=== PATIENT | female | born 1985 | race Asian ===

== ENCOUNTER 2019-01-25 18:55 | Inpatient (IN) | payer SELFPAY ==
--- NOTE | 2019-01-25 19:15 | ER Document Report ---
ED Medical Screen (RME) - General Chief Complaint: Abdominal Pain Stated Complaint: ABDOMINAL PAIN Time Seen by Provider: 01/25/19 19:12 Mode of Arrival: Wheelchair Information source: Patient Notes: 33-year-old female presented to ED for complaint of abdominal pain generalized with nausea and vomiting. She states this started about 530 this morning. She has been nausea and vomiting every time she drinks any liquids. She states she has vomited more than 10 times today. She states she had a 1 day. In October but she is not sexually active. She states that her periods are very irregular and sometimes she does not have a cycle for a year. I have greeted and performed a rapid initial assessment of this patient. A comprehensive ED assessment and evaluation of the patient, analysis of test results and completion of medical decision making process will be conducted by an additional ED providers. - Related Data Allergies/Adverse Reactions: No Known Allergies Allergy (Unverified 01/25/19 19:12) Physical Exam - Vital signs Vitals: Temp Pulse Resp BP Pulse Ox 97.7 F 103 H 18 130/79 H 100 01/25/19 19:00 01/25/19 19:00 01/25/19 19:00 01/25/19 19:00 01/25/19 19:00 Course - Vital Signs Vital signs: Temp Pulse Resp BP Pulse Ox 97.7 F 103 H 18 130/79 H 100 01/25/19 19:00 01/25/19 19:00 01/25/19 19:00 01/25/19 19:00 01/25/19 19:00
[2019-01-25] MEDS ORDERED: ONDANSETRON 4 MG TAB.RAPDIS PO ONE (19:16)
[2019-01-25] MEDS ORDERED: KETOROLAC TROMETHAMINE INJ/PF 30 MG/1 ML SDV IM ONE (19:16)
[2019-01-25 19:57] LABS: HEMATOCRIT 45.4 % (36.0-47.0); MEAN CORPUSCULAR HEMOGLOBIN 31.1 pg (27.0-33.4); MEAN CORPUSCULAR HGB CONC 35.3 g/dL (32.0-36.0); MEAN CORPUSCULAR VOLUME 88 fl (80-97); PLATELET COUNT 393 10^3/uL (150-450); RED BLOOD COUNT 5.15 10^6/uL (3.72-5.28); RED CELL DISTRIBUTION WIDTH 13.2 % (11.5-14.0); WHITE BLOOD COUNT 20.3 10^3/uL (4.0-10.5)
[2019-01-25 20:17] LABS: ALBUMIN 4.9 g/dL (3.5-5.0); ALKALINE PHOSPHATASE 60 U/L (38-126); ASPARTATE AMINO TRANSFERASE 32 U/L (14-36); BILIRUBIN,DIRECT 0.3 mg/dL (0.0-0.4); BILIRUBIN,TOTAL 0.8 mg/dL (0.2-1.3); BLOOD UREA NITROGEN 15 mg/dL (7-20); CALCIUM 9.7 mg/dL (8.4-10.2); GLUCOSE 161 mg/dL (75-110); POTASSIUM 4.5 mmol/L (3.6-5.0); TOTAL PROTEIN 8.7 g/dL (6.3-8.2)
[2019-01-25 20:33] LABS: ABSOLUTE LYMPHOCYTES# (MANUAL) 1.2 10^3/uL (0.5-4.7); ABSOLUTE MONOCYTES # (MANUAL) 0.6 10^3/uL (0.1-1.4); BAND NEUTROPHILS % (MANUAL) 9 % (3-5); BASOPHILS % (MANUAL) 0 % (0-2); EOSINOPHILS % (MANUAL) 0 % (0-6); LYMPHOCYTES % (MANUAL) 6 % (13-45); MONOCYTES % (MANUAL) 3 % (3-13); PLATELET COMMENT ADEQUATE; RBC MORPHOLOGY COMMENT NORMO-CYTIC/CHROMIC; SEGMENTED NEUTROPHILS % (MAN) 82 % (42-78); TOTAL CELLS COUNTED 100
[2019-01-25 20:46] LABS: CHLORIDE 104 mmol/L (98-107)
[2019-01-25 20:47] LABS: ANION GAP 21 (5-19); CARBON DIOXIDE 17 mmol/L (22-30)
[2019-01-25 21:16] LABS: APPEARANCE,URINE SLIGHTLY-CLOUDY; BILIRUBIN,URINE NEGATIVE (NEGATIVE); COLOR,URINE YELLOW; GLUCOSE, URINE NEGATIVE (NEGATIVE); KETONES,URINE 80 mg/dL (NEGATIVE); PROTEIN,URINE 100 mg/dL (NEGATIVE); UROBILINOGEN,URINE NEGATIVE mg/dL (<2.0)
[2019-01-25] MEDS ORDERED: RINGERS SOLUTION,LACTATED 1,000 ML IV ONE (23:51)
[2019-01-25] MEDS ORDERED: FENTANYL CITRATE INJ/PF 100 MCG/2 ML AMPUL IV ONE (23:52)
--- NOTE | 2019-01-26 00:03 | ER Document Report ---
ED GI/ - General Chief Complaint: Abdominal Pain Stated Complaint: ABDOMINAL PAIN Time Seen by Provider: 01/25/19 19:12 Mode of Arrival: Wheelchair Notes: Patient is otherwise healthy 33-year-old female presents to the emergency department for generalized abdominal pain and vomiting. Voices she started with generalized abdominal pain and vomiting around 530 this morning. Voices she has vomited "too many times to count." Patient's denying any blood in her emesis. She is denying any diarrhea or dysuria. She is denying any vaginal discharge. States initially the pain was epigastric but now "hurts everywhere." Patient voices occasional use of alcohol, denies any history of pancreatitis. States she takes seasonal allergy medications, has no medical problems, has no allergies. TRAVEL OUTSIDE OF THE [place] IN LAST 30 DAYS: No - Related Data Allergies/Adverse Reactions: No Known Allergies Allergy (Unverified 01/25/19 19:12) Past Medical History - General Information source: Patient - Social History Smoking Status: Current Every Day Smoker Chew tobacco use (# tins/day): No Frequency of alcohol use: Occasional Drug Abuse: None Family History: Reviewed & Not Pertinent Patient has suicidal ideation: No Patient has homicidal ideation: No Review of Systems - Review of Systems Constitutional: denies: Fever EENT: No symptoms reported Cardiovascular: No symptoms reported Respiratory: No symptoms reported Gastrointestinal: See HPI Genitourinary: No symptoms reported Female Genitourinary: No symptoms reported Musculoskeletal: No symptoms reported Skin: No symptoms reported Hematologic/Lymphatic: No symptoms reported Neurological/Psychological: No symptoms reported Physical Exam - Vital signs Vitals: Temp Pulse Resp BP Pulse Ox 97.7 F 103 H 18 130/79 H 100 01/25/19 19:00 01/25/19 19:00 01/25/19 19:00 01/25/19 19:00 01/25/19 19:00 - Notes Notes: GENERAL: Alert, interacts well. No obvious distress, holding her periumbilical region. HEAD: Normocephalic, atraumatic. EYES: Pupils equal, round, and reactive to light. Extraocular movements intact. ENT: Oral mucosa moist, tongue midline. NECK: Full range of motion. Supple. Trachea midline. LUNGS: Clear to auscultation bilaterally, no wheezes, rales, or rhonchi. No respiratory distress. HEART: Regular rate and rhythm. No murmur ABDOMEN: Soft, generalized abdominal pain noted all 4 quadrants. Non-distended. Bowel sounds present in all 4 quadrants. EXTREMITIES: Moves all 4 extremities spontaneously. No edema, normal radial and dorsalis pedis pulses bilaterally. No cyanosis. BACK: no cervical, thoracic, lumbar midline tenderness. No saddle anesthesia, normal distal neurovascular exam. NEUROLOGICAL: Alert and oriented x3. Normal speech. cranial nerves II through XII grossly intact PSYCH: Normal affect, normal mood. SKIN: Warm, dry, normal turgor. No rashes or lesions noted. Course - Re-evaluation Re-evalutation: 01/26/19 01:34 Laboratory 01/25/19 01/25/19 01/25/19 19:36 19:36 19:36 WBC 20.3 H RBC 5.15 Hgb 16.0 H Hct 45.4 MCV 88 MCH 31.1 MCHC 35.3 RDW 13.2 Plt Count 393 Lymph % (Auto) Not Reportable [place] % (Auto) Not Reportable Eos % (Auto) Not Reportable Baso % (Auto) Not Reportable Absolute Neuts (auto) Not Reportable Absolute Lymphs (auto) Not Reportable Absolute Monos (auto) Not Reportable Absolute Eos (auto) Not Reportable Absolute Basos (auto) Not Reportable Total Counted 100 Seg Neutrophils % Not Reportable Seg Neuts % (Manual) 82 H Band Neutrophils % 9 H Lymphocytes % (Manual) 6 L Monocytes % (Manual) 3 Eosinophils % (Manual) 0 Basophils % (Manual) 0 Abs Neuts (Manual) 18.5 H Abs Lymphs (Manual) 1.2 Abs Monocytes (Manual) 0.6 Absolute Eos (Manual) 0.0 Abs Basophils (Manual) 0.0 Platelet Comment ADEQUATE RBC Morph Comment NORMO-CYTIC/CHROMIC Sodium 141.7 Potassium 4.5 Chloride 104 Carbon Dioxide 17 L Anion Gap 21 H BUN 15 Creatinine 0.62 Est GFR ( Amer) > 60 Est GFR (MDRD) Non-Af > 60 Glucose 161 H Calcium 9.7 Total Bilirubin 0.8 Direct Bilirubin 0.3 Neonat Total Bilirubin Not Reportable Neonat Direct Bilirubin Not Reportable Neonat Indirect Bili Not Reportable AST 32 ALT 33 Alkaline Phosphatase 60 Total Protein 8.7 H Albumin 4.9 Lipase 28816.3 H Beta HCG, Quant < 2.39 Total Beta HCG NEGATIVE Urine Color YELLOW Urine Appearance SLIGHTLY-CLOUDY Urine pH 6.0 Ur Specific [place] 1.030 Urine Protein 100 H Urine Glucose (UA) NEGATIVE Urine Ketones 80 H Urine Blood NEGATIVE Urine Nitrite (Reflex) NEGATIVE Urine Bilirubin NEGATIVE Urine Urobilinogen NEGATIVE Leukocyte Esterase Rfl NEGATIVE Urine RBC (Auto) 26 Urine Bacteria (Auto) TRACE Urine WBC (Reflex) 4 Squamous Epi Cells Auto 6 Urine Mucus (Auto) MANY Urine Ascorbic Acid 40 H Abdomen/Pelvis CT 01/26/19 00:00 IMPRESSION: Acute pancreatitis. Fatty infiltrative change to the liver TECHNICAL DOCUMENTATION: Quality ID # 436: Final reports with documentation of one or more dose reduction techniques (e.g., Automated exposure control, adjustment of the mA and/or kV according to patient size, use of iterative reconstruction technique) copyright 2011 [employer]- All Rights Reserved I discussed this case with hospitalist Dr. Garcia who will admit the patient for continued care. - Vital Signs Vital signs: Temp Pulse Resp BP Pulse Ox 97.7 F 103 H 18 130/79 H 100 01/25/19 19:00 01/25/19 19:00 01/25/19 19:00 01/25/19 19:00 01/25/19 19:00 - Laboratory Result Diagrams: 01/25/19 19:36 01/25/19 19:36 Laboratory results interpreted by me: 01/25/19 01/25/19 01/25/19 19:36 19:36 19:36 WBC 20.3 H Hgb 16.0 H Seg Neuts % (Manual) 82 H Band Neutrophils % 9 H Lymphocytes % (Manual) 6 L Abs Neuts (Manual) 18.5 H Carbon Dioxide 17 L Anion Gap 21 H Glucose 161 H Total Protein 8.7 H Lipase 70233.3 H Urine Protein 100 H Urine Ketones 80 H Urine Ascorbic Acid 40 H Discharge - Discharge Clinical Impression: Pancreatitis Qualifiers: Chronicity: acute Pancreatitis type: unspecified pancreatitis type Acute pancreatitis complication: unspecified Qualified Code(s): K85.90 - Acute pancreatitis without necrosis or infection, unspecified Condition: Stable Disposition: ADMITTED INPATIENT Admitting Provider: Jose (Hospitalist) Unit Admitted: Medical Floor
--- NOTE | 2019-01-26 01:22 | RADIOLOGY REPORT (SQ) ---
EXAM DESCRIPTION: CT ABDOMEN PELVIS WITH IV CONTRAST COMPLETED DATE/TME: 01/26/2019 00:00 CLINICAL HISTORY: 33 years, Female, general pain. hcg neg COMPARISON: None. TECHNIQUE: 809 Images stored on PACS. All CT scanners at this facility use dose modulation, iterative reconstruction, and/or weight based dosing when appropriate to reduce radiation dose to as low as reasonably achievable (ALARA). [facility]: Dose Right [facility]: CareDose [facility]: Dose Right [facility]: Teradose 4D [facility]: UTILICASE LIMITATIONS: None. FINDINGS: Visualized lung bases are unremarkable. Osseous structures are grossly intact. Fatty infiltrative change to the liver. The spleen and adrenal glands are unremarkable. Extensive heterogeneity of the pancreas with peripancreatic inflammatory changes consistent with acute pancreatitis. The gallbladder is present. Kidneys are unremarkable. No free air or free fluid. Normal appendix. No gross evidence for bowel obstruction IMPRESSION: Acute pancreatitis. Fatty infiltrative change to the liver TECHNICAL DOCUMENTATION: Quality ID # 436: Final reports with documentation of one or more dose reduction techniques (e.g., Automated exposure control, adjustment of the mA and/or kV according to patient size, use of iterative reconstruction technique) copyright 2010 [employer]- All Rights Reserved
[2019-01-26] MEDS ORDERED: MAGNESIUM HYDROXIDE SUSP 30 ML UDCUP PO PRN (02:39)
[2019-01-26] MEDS ORDERED: MORPHINE SULFATE 10 MG/ML INJ IV PRN (02:39)
[2019-01-26] MEDS ORDERED: HYDRALAZINE HCL INJ/PF 20 MG/1 ML SDV IV PRN (02:39)
[2019-01-26] MEDS ORDERED: NICOTINE 21 MG/24 HR PATCH.TD24 TD PRN (02:39)
[2019-01-26] MEDS ORDERED: MAG HYDROX/AL HYDROX/SIMETH SUSP 30 ML UDCUP PO PRN (02:39)
[2019-01-26] MEDS: DEXTROSE 5%-LACTATED RINGERS 1,000 ML IV PRN ×3 (03:22→23:04)
[2019-01-26] MEDS: MORPHINE SULFATE 10 MG/ML INJ IV PRN ×8 (03:22→21:50)
--- NOTE | 2019-01-26 06:04 | PDOC H&P ---
History of Present Illness Admission Date/PCP: 01/26/19 01:58 No local PCP Patient complains of: Abdominal pain History of Present Illness: DARRELL BIRCH is a 33 year old female presented to the emergency room with a 1 day history of abdominal pain. 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 Her abdominal pain was a continuous continuous crampy pressure of moderate to severe intensity, without radiation. Her pain was accompanied by nausea and repetitive vomiting throughout the day. She denies other associated or accompanying signs and symptoms. She denies prior similar episodes. She has not identified any aggravating or ameliorating factors for her abdominal pain. In the emergency room she was found to have a lipase of greater than 15,000 with a white blood count of greater than 20,000 and acute pancreatitis on her CT of the abdomen and pelvis. She was subsequently admitted to the hospital for further evaluation and treatment. Past Medical History Cardiac Medical History: Denies: Coronary Artery Disease, Hypertension Pulmonary Medical History: Denies: Asthma, Chronic Obstructive Pulmonary Disease (COPD) EENT Medical History: Reports: Nose - Allergic rhinitis Denies: Cataracts, Ears - Hearing aids Neurological Medical History: Denies: Hemorrhagic CVA, Ischemic CVA, Migraine, Multiple Sclerosis, Seizures Endocrine Medical History: Reports: Obesity Denies: Diabetes Mellitus Type 1, Diabetes Mellitus Type 2, Hyperthyroidism, Hypothyroidism Renal/ Medical History: Denies: Chronic Kidney Disease, Nephrolithiasis Malignancy Medical History: Reports: None GI Medical History: Denies: Cirrhosis, Hepatitis, Peptic Ulcer Disease Musculoskeltal Medical History: Denies: Arthritis, Gout Skin Medical History: Denies: Eczema, Psoriasis Psychiatric Medical History: Reports: Tobacco Dependency Denies: Alcohol Dependency, Substance Abuse Traumatic Medical History: Reports: None Hematology: Denies: Anemia, Bleeding Tendencies Infectious Medical History: Reports: None Past Surgical History Past Surgical History: Reports: None Social History Information Source: Patient Lives with: Spouse/Significant other Smoking Status: Current Every Day Smoker Electronic Cigarette use?: No Frequency of Alcohol Use: Occasional Hx Recreational Drug Use: No Drugs: None Hx Prescription Drug Abuse: No - Advance Directive Resuscitation Status: Full Code Surrogate healthcare decision maker:: Samm Fagan Family History Family History: denies: CAD, DM, Hyperlipidemia, Hypertension, Malignancy Parental Family History Reviewed: Yes Children Family History Reviewed: No Sibling(s) Family History Reviewed.: Yes Medication/Allergy Home Medications: Diphenhydramine HCl [Benadryl] 25 mg PO DAILYP PRN 01/25/19 Allergies/Adverse Reactions: No Known Allergies Allergy (Unverified 01/25/19 19:12) Review of Systems Constitutional: ABSENT: chills, fever(s) Eyes: ABSENT: visual disturbances, other - Eye pain Ears: ABSENT: hearing changes, other - Ear pain Nose, Mouth, and Throat: ABSENT: mouth pain, sore throat Cardiovascular: ABSENT: chest pain, dyspnea on exertion Respiratory: ABSENT: dyspnea, hemoptysis Gastrointestinal: PRESENT: as per HPI, abdominal pain, nausea, vomiting. ABSENT: constipation, diarrhea Genitourinary: ABSENT: dysuria, hematuria Musculoskeletal: ABSENT: back pain, joint swelling, muscle weakness Integumentary: ABSENT: pruritus, rash Neurological: ABSENT: confusion, convulsions, focal weakness, memory loss, syncope Psychiatric: ABSENT: anxiety, depression Endocrine: ABSENT: cold intolerance, heat intolerance Hematologic/Lymphatic: ABSENT: easy bleeding, easy bruising Allergic/Immunologic: ABSENT: seasonal rhinorrhea Physical Exam Vital Signs: Temp Pulse Resp BP Pulse Ox 97.7 F 103 H 18 130/79 H 100 01/25/19 19:00 01/25/19 19:00 01/25/19 19:00 01/25/19 19:00 01/25/19 19:00 Intake & Output 01/24/19 01/25/19 01/26/19 23:59 23:59 23:59 Intake Total 1000 Balance 1000 Weight 97.9 kg General appearance: PRESENT: cooperative, mild distress - Secondary to abdominal pain, obese Head exam: PRESENT: atraumatic, normocephalic Eye exam: PRESENT: conjunctiva pink. ABSENT: conjunctival injection, scleral icterus Ear exam: PRESENT: normal external ear exam. ABSENT: bleeding, drainage Mouth exam: PRESENT: dry mucosa, neck supple Neck exam: ABSENT: thyromegaly, tracheal deviation Respiratory exam: PRESENT: clear to auscultation marc, symmetrical, unlabored Cardiovascular exam: PRESENT: RRR. ABSENT: clicks, gallop, rubs Pulses: PRESENT: normal radial pulses, normal dorsalis pedis pul Vascular exam: PRESENT: normal capillary refill. ABSENT: pallor GI/Abdominal exam: PRESENT: normal bowel sounds, soft, tenderness - Epigastric tenderness to palpation Rectal exam: PRESENT: deferred Extremities exam: ABSENT: joint swelling, pedal edema Musculoskeletal exam: ABSENT: deformity, dislocation Neurological exam: PRESENT: alert, oriented to person, oriented to place, oriented to time, oriented to situation, CN II-XII grossly intact. ABSENT: motor sensory deficit Psychiatric exam: PRESENT: appropriate affect, normal mood Skin exam: PRESENT: dry, intact, warm. ABSENT: jaundice, rash, urticaria Results Laboratory Results: 01/25/19 19:36 01/25/19 19:36 01/25/19 01/25/19 01/25/19 19:36 19:36 19:36 WBC 20.3 H RBC 5.15 Hgb 16.0 H Hct 45.4 MCV 88 MCH 31.1 MCHC 35.3 RDW 13.2 Plt Count 393 Seg Neutrophils % Not Reportable Sodium 141.7 Potassium 4.5 Chloride 104 Carbon Dioxide 17 L Anion Gap 21 H BUN 15 Creatinine 0.62 Est GFR ( Amer) > 60 Glucose 161 H Calcium 9.7 Total Bilirubin 0.8 AST 32 Alkaline Phosphatase 60 Total Protein 8.7 H Albumin 4.9 Lipase 21096.3 H Urine Color YELLOW Urine Appearance SLIGHTLY-CLOUDY Urine pH 6.0 Ur Specific [place] 1.030 Urine Protein 100 H Urine Glucose (UA) NEGATIVE Urine Ketones 80 H Urine Blood NEGATIVE Urine RBC (Auto) 26 Impressions: Abdomen/Pelvis CT 01/26/19 00:00 IMPRESSION: Acute pancreatitis. Fatty infiltrative change to the liver TECHNICAL DOCUMENTATION: Quality ID # 436: Final reports with documentation of one or more dose reduction techniques (e.g., Automated exposure control, adjustment of the mA and/or kV according to patient size, use of iterative reconstruction technique) copyright 2011 [employer]- All Rights Reserved Assessment and Plan - Diagnosis (1) Acute pancreatitis Qualifiers: Pancreatitis type: unspecified pancreatitis type Acute pancreatitis complication: unspecified Qualified Code(s): K85.90 - Acute pancreatitis without necrosis or infection, unspecified Is this a current diagnosis for this admission?: Yes (2) Abdominal pain Qualifiers: Abdominal location: epigastric Qualified Code(s): R10.13 - Epigastric pain Is this a current diagnosis for this admission?: Yes (3) Nausea and vomiting Qualifiers: Vomiting Intractability: non-intractable Is this a current diagnosis for this admission?: Yes (4) Leukocytosis Qualifiers: Leukocytosis type: unspecified Qualified Code(s): D72.829 - Elevated white blood cell count, unspecified Is this a current diagnosis for this admission?: Yes - Plan Summary Summary: Patient is admitted to a medical floor for routine supportive and symptomatic care. She will receive IV fluids utilizing D5LR at 167 mL/h. She received analgesia with morphine sulfate 2 to 4 mg IV every 2 hours as needed pain and she will use Zofran 4 mg IV every 4 hours as needed for nausea and vomiting. She will be started on a clear liquid diet which can be advanced as tolerated. She will be started on Reglan, famotidine and sucralfate before meals and at bedtime. Smoking cessation is advised and counseled briefly. A nicotine replacement patch is available for the patient's use, if desired. - Time Time Spent with patient: 25-34 minutes Smoking Cessation Education: 3 to 10 minutes Anticipated discharge: Home - Inpatient Certification Based on my medical assessment, after consideration of the patient's comorbidities, presenting symptoms, or acuity I expect that the services needed warrant INPATIENT care.: Yes I certify that my determination is in accordance with my understanding of Medicare's requirements for reasonable and necessary INPATIENT services [42 CFR 412.3e].: Yes Medical Necessity: Need Close Monitoring Due to Risk of Patient Decompensation, Need For IV Fluids, Need for Pain Control, Risk of Complication if Not Cared For in Hospital, Risk of Diagnosis Which Will Require Inpatient Eval/Care/Monitoring
[2019-01-26] MEDS: HEPARIN SOD (PORCINE) 5,000 UNIT/ML 1 ML VIAL SUBCUT SCH ×3 (07:01→21:56)
--- NOTE | 2019-01-26 08:03 | Progress Note ---
Provider Note Provider Note: 01/26/2019-patient met early a.m. I have reviewed labs this patient. We will continue to follow make changes plan of care as appropriate for patient.
[2019-01-26] MEDS: SUCRALFATE 1 GM TABLET PO SCH ×4 (08:22→21:51)
[2019-01-26] MEDS: METOCLOPRAMIDE HCL 10 MG TABLET PO SCH ×4 (08:22→21:51)
[2019-01-26] MEDS: FAMOTIDINE 20 MG TABLET PO SCH ×4 (08:22→21:50)
--- NOTE | 2019-01-26 08:53 | RADIOLOGY REPORT (SQ) ---
EXAM DESCRIPTION: U/S ABDOMEN LIMITED W/O DOP COMPLETED DATE/TIME: 01/26/2019 8:02 am REASON FOR STUDY: Acute pancreatitis please ultrasound gallbladder COMPARISON: None. TECHNIQUE: Dynamic and static grayscale images acquired of the abdomen and recorded on PACS. Additio nal selected color Doppler and spectral images recorded. LIMITATIONS: None. FINDINGS: PANCREAS: Heterogeneous. No mass identified. LIVER: Echotexture is coarse with increased echogenicity consistent with fatty infiltration. LIVER VASCULATURE: Normal directional flow of the main portal vein and hepatic veins. GALLBLADDER: No stones. Normal wall thickness. No pericholecystic fluid. ULTRASOUND-DETECTED INFANTE'S SIGN: Negative. INTRAHEPATIC DUCTS AND COMMON DUCT: CBD and intrahepatic ducts normal caliber. No filling defects. INFERIOR VENA CAVA: Normal flow. AORTA: No aneurysm. RIGHT KIDNEY: Normal size. Normal echogenicity. No solid or suspicious masses. No hydronephros is. No calcifications. PERITONEAL AND RIGHT PLEURAL SPACE: No ascites or effusions. OTHER: No other significant finding. IMPRESSION: Fatty liver. No acute findings. Patient has known acute pancreatitis. TECHNICAL DOCUMENTATION: JOB ID: [id number] [employer]- All Rights Reserved Reading location - IP/workstation name: [email or web address]
[2019-01-26] MEDS ORDERED: INFLUENZA QUAD (6MOS+) 2019-20 VAC 0.5 ML SYR IM ONE (10:17)
[2019-01-26] MEDS: ACETAMINOPHEN 325 MG TABLET PO PRN ×2 (13:03→21:52)
[2019-01-27] MEDS: MORPHINE SULFATE 10 MG/ML INJ IV PRN ×8 (01:59→23:20)
[2019-01-27] MEDS: ACETAMINOPHEN 325 MG TABLET PO PRN ×4 (03:33→20:45)
[2019-01-27 06:10] LABS: HEMATOCRIT 36.8 % (36.0-47.0); MEAN CORPUSCULAR HEMOGLOBIN 30.2 pg (27.0-33.4); MEAN CORPUSCULAR VOLUME 89 fl (80-97); PLATELET COUNT 293 10^3/uL (150-450); RED BLOOD COUNT 4.14 10^6/uL (3.72-5.28); RED CELL DISTRIBUTION WIDTH 13.4 % (11.5-14.0); WHITE BLOOD COUNT 11.9 10^3/uL (4.0-10.5)
[2019-01-27 06:11] LABS: HEMOGLOBIN 12.5 g/dL (12.0-15.5)
[2019-01-27 06:32] LABS: AMYLASE 537 U/L (30-110); ANION GAP 11 (5-19); BLOOD UREA NITROGEN 10 mg/dL (7-20); CALCIUM 8.1 mg/dL (8.4-10.2); CARBON DIOXIDE 24 mmol/L (22-30); CHLORIDE 102 mmol/L (98-107); CHOLESTEROL 149.96 mg/dL (0-200); GLUCOSE 151 mg/dL (75-110); POTASSIUM 3.3 mmol/L (3.6-5.0); TRIGLYCERIDES 387 mg/dL (<150)
[2019-01-27 06:43] LABS: DIRECT LDL 57 mg/dL (<100)
[2019-01-27] MEDS: HEPARIN SOD (PORCINE) 5,000 UNIT/ML 1 ML VIAL SUBCUT SCH ×3 (06:48→23:20)
[2019-01-27 06:49] LABS: VLDL CHOLESTEROL 77.4 mg/dL (10-31)
[2019-01-27] MEDS: DEXTROSE 5%-LACTATED RINGERS 1,000 ML IV PRN ×3 (06:52→23:19)
[2019-01-27] MEDS ORDERED: POTASSIUM CHLORIDE 10 MEQ CAPSULE.ER PO ONE (08:27)
--- NOTE | 2019-01-27 08:31 | PDOC PROGRESS REPORT ---
Subjective Progress Note for:: 01/27/19 Subjective:: 01/27/2019-improved pain this a.m. Reason For Visit: ACUTE PANCREATITIS Physical Exam Vital Signs: Temp Pulse Resp BP Pulse Ox 98.2 F 117 H 18 115/74 93 01/27/19 03:30 01/26/19 20:26 01/26/19 20:26 01/27/19 03:30 01/26/19 20:26 Intake & Output 01/26/19 01/27/19 01/28/19 06:59 06:59 05:59 Intake Total 1000 3510 Output Total 120 Balance 1000 3390 Weight 97.9 kg 101.3 kg General appearance: PRESENT: no acute distress, well-developed, well-nourished Head exam: PRESENT: atraumatic, normocephalic Eye exam: PRESENT: conjunctiva pink, EOMI, PERRLA. ABSENT: scleral icterus Ear exam: PRESENT: normal external ear exam Mouth exam: PRESENT: moist, tongue midline Neck exam: ABSENT: carotid bruit, JVD, lymphadenopathy, thyromegaly Respiratory exam: PRESENT: clear to auscultation marc. ABSENT: rales, rhonchi, wheezes Cardiovascular exam: PRESENT: RRR. ABSENT: diastolic murmur, rubs, systolic murmur Pulses: PRESENT: normal dorsalis pedis pul Vascular exam: PRESENT: normal capillary refill GI/Abdominal exam: PRESENT: normal bowel sounds, soft. ABSENT: distended, guarding, mass, organolmegaly, rebound, tenderness Rectal exam: PRESENT: deferred Extremities exam: PRESENT: full ROM. ABSENT: calf tenderness, clubbing, pedal edema Neurological exam: PRESENT: alert, awake, oriented to person, oriented to place, oriented to time, oriented to situation, CN II-XII grossly intact. ABSENT: motor sensory deficit Psychiatric exam: PRESENT: appropriate affect, normal mood. ABSENT: homicidal ideation, suicidal ideation Skin exam: PRESENT: dry, intact, warm. ABSENT: cyanosis, rash Results Laboratory Results: 01/27/19 05:16 01/27/19 05:16 01/27/19 01/27/19 01/27/19 05:16 05:16 05:16 WBC 11.9 H RBC 4.14 Hgb 12.5 D Hct 36.8 MCV 89 MCH 30.2 MCHC 34.0 RDW 13.4 Plt Count 293 Sodium 137.0 Potassium 3.3 L Chloride 102 Carbon Dioxide 24 Anion Gap 11 BUN 10 Creatinine 0.73 Est GFR ( Amer) > 60 Glucose 151 H Calcium 8.1 L Magnesium 1.9 Triglycerides 387 H Cholesterol 149.96 LDL Cholesterol Direct 57 VLDL Cholesterol 77.4 H HDL Cholesterol 24 L Amylase 537 H Lipase 2456.0 H TSH 1.57 Impressions: Abdomen Ultrasound 01/26/19 00:00 IMPRESSION: Fatty liver. No acute findings. Patient has known acute pancreatitis. Abdomen/Pelvis CT 01/26/19 00:00 IMPRESSION: Acute pancreatitis. Fatty infiltrative change to the liver TECHNICAL DOCUMENTATION: Quality ID # 436: Final reports with documentation of one or more dose reduction techniques (e.g., Automated exposure control, adjustment of the mA and/or kV according to patient size, use of iterative reconstruction technique) copyright 2010 [employer]- All Rights Reserved Assessment and Plan - Diagnosis (1) Acute pancreatitis Qualifiers: Pancreatitis type: unspecified pancreatitis type Acute pancreatitis complication: unspecified Qualified Code(s): K85.90 - Acute pancreatitis without necrosis or infection, unspecified Is this a current diagnosis for this admission?: Yes Plan: 01/27/2019-abdominal pain is improved. Continue PRN pain medications. Lipase reduced significantly. Patient started on clear liquid diet we will continue to follow (2) Abdominal pain Qualifiers: Abdominal location: epigastric Qualified Code(s): R10.13 - Epigastric pain Is this a current diagnosis for this admission?: Yes Plan: 01/2019-abdominal pain see #1 (3) Nausea and vomiting Qualifiers: Vomiting Intractability: non-intractable Is this a current diagnosis for this admission?: Yes Plan: 01/27/2019-continue PRN antiemetics (4) Leukocytosis Qualifiers: Leukocytosis type: unspecified Qualified Code(s): D72.829 - Elevated white blood cell count, unspecified Is this a current diagnosis for this admission?: Yes Plan: 01/27/2019-improved continue to follow daily CBCs - Plan Summary Summary: Patient is admitted to a medical floor for routine supportive and symptomatic care. She will receive IV fluids utilizing D5LR at 167 mL/h. She received analgesia with morphine sulfate 2 to 4 mg IV every 2 hours as needed pain and she will use Zofran 4 mg IV every 4 hours as needed for nausea and vomiting. She will be started on a clear liquid diet which can be advanced as tolerated. She will be started on Reglan, famotidine and sucralfate before meals and at bedtime. Smoking cessation is advised and counseled briefly. A nicotine replacement patch is available for the patient's use, if desired. - Time Time Spent with patient: 15-24 minutes - Inpatient Certification Based on my medical assessment, after consideration of the patient's comorbidities, presenting symptoms, or acuity I expect that the services needed warrant INPATIENT care.: Yes I certify that my determination is in accordance with my understanding of Medicare's requirements for reasonable and necessary INPATIENT services [42 CFR 412.3e].: Yes Medical Necessity: Need For IV Fluids, Need for Pain Control
[2019-01-27] MEDS: METOCLOPRAMIDE HCL 10 MG TABLET PO SCH ×4 (09:38→23:21)
[2019-01-27] MEDS: LIPASE/PROTEASE/AMYLASE 1 CAP CAPSULE.DR PO SCH ×3 (09:38→17:52)
[2019-01-27] MEDS: SUCRALFATE 1 GM TABLET PO SCH ×4 (09:38→23:22)
[2019-01-27] MEDS: FAMOTIDINE 20 MG TABLET PO SCH ×4 (09:41→23:21)
[2019-01-28] MEDS: MORPHINE SULFATE 10 MG/ML INJ IV PRN ×7 (01:22→13:36)
[2019-01-28] MEDS: ACETAMINOPHEN 325 MG TABLET PO PRN (03:59)
[2019-01-28] MEDS: DEXTROSE 5%-LACTATED RINGERS 1,000 ML IV PRN ×2 (04:00→11:11)
[2019-01-28 06:35] LABS: HEMATOCRIT 31.2 % (36.0-47.0); HEMOGLOBIN 10.7 g/dL (12.0-15.5); MEAN CORPUSCULAR HEMOGLOBIN 30.3 pg (27.0-33.4); MEAN CORPUSCULAR HGB CONC 34.3 g/dL (32.0-36.0); MEAN CORPUSCULAR VOLUME 88 fl (80-97); PLATELET COUNT 255 10^3/uL (150-450); RED BLOOD COUNT 3.54 10^6/uL (3.72-5.28); RED CELL DISTRIBUTION WIDTH 13.4 % (11.5-14.0); WHITE BLOOD COUNT 12.9 10^3/uL (4.0-10.5)
[2019-01-28 06:53] LABS: ANION GAP 8 (5-19); BLOOD UREA NITROGEN 4 mg/dL (7-20); CARBON DIOXIDE 27 mmol/L (22-30); CHLORIDE 100 mmol/L (98-107); GLUCOSE 130 mg/dL (75-110); POTASSIUM 3.3 mmol/L (3.6-5.0)
[2019-01-28] MEDS: HEPARIN SOD (PORCINE) 5,000 UNIT/ML 1 ML VIAL SUBCUT SCH ×2 (06:59→13:27)
--- NOTE | 2019-01-28 07:53 | PDOC DISCHARGE SUMMARY ---
Impression - Admit/DC Date/PCP Admission Date/Primary Care Provider: 01/26/19 01:58 Discharge Date: 01/28/19 - Discharge Diagnosis (1) Acute pancreatitis Is this a current diagnosis for this admission?: Yes (2) Abdominal pain Is this a current diagnosis for this admission?: Yes (3) Nausea and vomiting Is this a current diagnosis for this admission?: Yes (4) Leukocytosis Is this a current diagnosis for this admission?: Yes - Assessment Summary: Patient is admitted to a medical floor for routine supportive and symptomatic care. She will receive IV fluids utilizing D5LR at 167 mL/h. She received analgesia with morphine sulfate 2 to 4 mg IV every 2 hours as needed pain and she will use Zofran 4 mg IV every 4 hours as needed for nausea and vomiting. She will be started on a clear liquid diet which can be advanced as tolerated. She will be started on Reglan, famotidine and sucralfate before meals and at bedtime. Smoking cessation is advised and counseled briefly. A nicotine replacement patch is available for the patient's use, if desired. - Additional Information Resuscitation Status: Full Code Discharge Diet: As Tolerated Discharge Activity: Activity As Tolerated Prescriptions: Hydrocodone/Acetaminophen [[place] 5-325 mg Tablet] 1 tab PO TID PRN #15 tablet PRN Reason: Ondansetron HCl [Zofran 4 mg Tablet] 1 - 2 tab PO Q4H PRN #10 tablet PRN Reason: Home Medications: Loratadine [Claritin 10 mg Tablet] 10 mg PO DAILYP PRN 01/26/19 Hydrocodone/Acetaminophen [[place] 5-325 mg Tablet] 1 tab PO TID PRN #15 tablet 01/28/19 Ondansetron HCl [Zofran 4 mg Tablet] 1 - 2 tab PO Q4H PRN #10 tablet 01/28/19 History of Present Illiness History of Present Illness: DARRELL BIRCH is a 33 year old female presented to the ER with 1 day history of abdominal pain. Hospital Course Hospital Course: Patient presented to the ER with a 1 day history of abdominal pain. Patient states she woke abruptly with epigastric abdominal pain during the still tender hours. Abdominal pain was continuous and crampy. It was moderate to severe in intensity and without radiation. It was associated with nausea and vomiting throughout the day. Patient was admitted for further evaluation treatment. Patient was placed on medical surgical floor given IV fluids, IV pain control and medication for nausea and vomiting. At this time patient is improved sufficiently and is tolerating oral diet. Patient will return home at this time continue bland diet until patient feels she is capable of eating at her baseline. We will send patient home on Zofran 4 mg p.o. as needed and [place] 5/325 mg 1 p.o. 3 times daily as needed #15 with no refills for abdominal pain. Patient will follow-up primary care within 1 week. Physical Exam Vital Signs: Temp Pulse Resp BP Pulse Ox 99.4 F 112 H 17 107/58 L 94 01/27/19 23:37 01/27/19 23:37 01/27/19 23:37 01/27/19 23:37 01/27/19 23:37 Intake & Output 01/27/19 01/28/19 01/29/19 07:59 06:59 06:59 Intake Total Output Total Balance Weight General appearance: PRESENT: no acute distress, well-developed, well-nourished Head exam: PRESENT: atraumatic, normocephalic Eye exam: PRESENT: conjunctiva pink, EOMI, PERRLA. ABSENT: scleral icterus Ear exam: PRESENT: normal external ear exam Mouth exam: PRESENT: moist, tongue midline Neck exam: ABSENT: carotid bruit, JVD, lymphadenopathy, thyromegaly Respiratory exam: PRESENT: clear to auscultation marc. ABSENT: rales, rhonchi, wheezes Cardiovascular exam: PRESENT: RRR. ABSENT: diastolic murmur, rubs, systolic mur mur Pulses: PRESENT: normal dorsalis pedis pul Vascular exam: PRESENT: normal capillary refill GI/Abdominal exam: PRESENT: normal bowel sounds, soft. ABSENT: distended, guarding, mass, organolmegaly, rebound, tenderness Rectal exam: PRESENT: deferred Extremities exam: PRESENT: full ROM. ABSENT: calf tenderness, clubbing, pedal edema Neurological exam: PRESENT: alert, awake, oriented to person, oriented to place, oriented to time, oriented to situation, CN II-XII grossly intact. ABSENT: motor sensory deficit Psychiatric exam: PRESENT: appropriate affect, normal mood. ABSENT: homicidal ideation, suicidal ideation Skin exam: PRESENT: dry, intact, warm. ABSENT: cyanosis, rash Results Laboratory Results: WBC 12.9 10^3/uL (4.0-10.5) H 01/28/19 05:06 RBC 3.54 10^6/uL (3.72-5.28) L 01/28/19 05:06 Hgb 10.7 g/dL (12.0-15.5) L 01/28/19 05:06 Hct 31.2 % (36.0-47.0) L 01/28/19 05:06 MCV 88 fl (80-97) 01/28/19 05:06 MCH 30.3 pg (27.0-33.4) 01/28/19 05:06 MCHC 34.3 g/dL (32.0-36.0) 01/28/19 05:06 RDW 13.4 % (11.5-14.0) 01/28/19 05:06 Plt Count 255 10^3/uL (150-450) 01/28/19 05:06 Lymph % (Auto) Not Reportable 01/25/19 19:36 [place] % (Auto) Not Reportable 01/25/19 19:36 Eos % (Auto) Not Reportable 01/25/19 19:36 Baso % (Auto) Not Reportable 01/25/19 19:36 Absolute Neuts (auto) Not Reportable 01/25/19 19:36 Absolute Lymphs (auto) Not Reportable 01/25/19 19:36 Absolute Monos (auto) Not Reportable 01/25/19 19:36 Absolute Eos (auto) Not Reportable 01/25/19 19:36 Absolute Basos (auto) Not Reportable 01/25/19 19:36 Total Counted 100 01/25/19 19:36 Seg Neutrophils % Not Reportable 01/25/19 19:36 Seg Neuts % (Manual) 82 % (42-78) H 01/25/19 19:36 Band Neutrophils % 9 % (3-5) H 01/25/19 19:36 Lymphocytes % (Manual) 6 % (13-45) L 01/25/19 19:36 Monocytes % (Manual) 3 % (3-13) 01/25/19 19:36 Eosinophils % (Manual) 0 % (0-6) 01/25/19 19:36 Basophils % (Manual) 0 % (0-2) 01/25/19 19:36 Abs Neuts (Manual) 18.5 10^3/uL (1.7-8.2) H 01/25/19 19:36 Abs Lymphs (Manual) 1.2 10^3/uL (0.5-4.7) 01/25/19 19:36 Abs Monocytes (Manual) 0.6 10^3/uL (0.1-1.4) 01/25/19 19:36 Absolute Eos (Manual) 0.0 10^3/uL (0.0-0.6) 01/25/19 19:36 Abs Basophils (Manual) 0.0 10^3/uL (0.0-0.2) 01/25/19 19:36 Platelet Comment ADEQUATE 01/25/19 19:36 RBC Morph Comment NORMO-CYTIC/CHROMIC 01/25/19 19:36 Sodium 135.2 mmol/L (137-145) L 01/28/19 05:06 Potassium 3.3 mmol/L (3.6-5.0) L 01/28/19 05:06 Chloride 100 mmol/L (98-107) 01/28/19 05:06 Carbon Dioxide 27 mmol/L (22-30) 01/28/19 05:06 Anion Gap 8 (5-19) 01/28/19 05:06 BUN 4 mg/dL (7-20) L 01/28/19 05:06 Creatinine 0.76 mg/dL (0.52-1.25) 01/28/19 05:06 Est GFR ( Amer) > 60 (>60) 01/28/19 05:06 Est GFR (MDRD) Non-Af > 60 (>60) 01/28/19 05:06 Glucose 130 mg/dL (75-110) H 01/28/19 05:06 Calcium 8.0 mg/dL (8.4-10.2) L 01/28/19 05:06 Magnesium 1.8 mg/dL (1.6-2.3) 01/28/19 05:06 Total Bilirubin 0.8 mg/dL (0.2-1.3) 01/25/19 19:36 Direct Bilirubin 0.3 mg/dL (0.0-0.4) 01/25/19 19:36 Neonat Total Bilirubin Not Reportable 01/25/19 19:36 Neonat Direct Bilirubin Not Reportable 01/25/19 19:36 Neonat Indirect Bili Not Reportable 01/25/19 19:36 AST 32 U/L (14-36) 01/25/19 19:36 ALT 33 U/L (<35) 01/25/19 19:36 Alkaline Phosphatase 60 U/L (38-126) 01/25/19 19:36 Total Protein 8.7 g/dL (6.3-8.2) H 01/25/19 19:36 Albumin 4.9 g/dL (3.5-5.0) 01/25/19 19:36 Triglycerides 387 mg/dL (<150) H 01/27/19 05:16 Cholesterol 149.96 mg/dL (0-200) 01/27/19 05:16 LDL Cholesterol Direct 57 mg/dL (<100) 01/27/19 05:16 VLDL Cholesterol 77.4 mg/dL (10-31) H 01/27/19 05:16 HDL Cholesterol 24 mg/dL (>40) L 01/27/19 05:16 Amylase 537 U/L (30-110) H 01/27/19 05:16 Lipase 2456.0 U/L (23-300) H 01/27/19 05:16 TSH 1.57 uIU/mL (0.47-4.68) 01/27/19 05:16 Free T3 pg/mL 3.04 pg/mL (2.77-5.27) 01/25/19 19:36 Beta HCG, Quant < 2.39 mIU/mL (0.0-6.15) 01/25/19 19:36 Total Beta HCG NEGATIVE (NEGATIVE) 01/25/19 19:36 Urine Color YELLOW 01/25/19 19:36 Urine Appearance SLIGHTLY-CLOUDY 01/25/19 19:36 Urine pH 6.0 (5.0-9.0) 01/25/19 19:36 Ur Specific [place] 1.030 01/25/19 19:36 Urine Protein 100 mg/dL (NEGATIVE) H 01/25/19 19:36 Urine Glucose (UA) NEGATIVE mg/dL (NEGATIVE) 01/25/19 19:36 Urine Ketones 80 mg/dL (NEGATIVE) H 01/25/19 19:36 Urine Blood NEGATIVE (NEGATIVE) 01/25/19 19:36 Urine Nitrite (Reflex) NEGATIVE (NEGATIVE) 01/25/19 19:36 Urine Bilirubin NEGATIVE (NEGATIVE) 01/25/19 19:36 Urine Urobilinogen NEGATIVE mg/dL (<2.0) 01/25/19 19:36 Leukocyte Esterase Rfl NEGATIVE (NEGATIVE) 01/25/19 19:36 Urine RBC (Auto) 26 /HPF 01/25/19 19:36 Urine Bacteria (Auto) TRACE /HPF 01/25/19 19:36 Urine WBC (Reflex) 4 /HPF 01/25/19 19:36 Squamous Epi Cells Auto 6 /HPF 01/25/19 19:36 Urine Mucus (Auto) MANY /LPF 01/25/19 19:36 Urine Ascorbic Acid 40 (NEGATIVE) H 01/25/19 19:36 Impressions: Abdomen Ultrasound 01/26/19 00:00 IMPRESSION: Fatty liver. No acute findings. Patient has known acute pancreatitis. Abdomen/Pelvis CT 01/26/19 00:00 IMPRESSION: Acute pancreatitis. Fatty infiltrative change to the liver TECHNICAL DOCUMENTATION: Quality ID # 436: Final reports with documentation of one or more dose reduction techniques (e.g., Automated exposure control, adjustment of the mA and/or kV according to patient size, use of iterative reconstruction technique) copyright 2011 [employer]- All Rights Reserved Plan Time Spent: Greater than 30 Minutes Stroke Is this a Stroke Patient?: No Acute Heart Failure - Is this a Heart Failure Patient?: No
[2019-01-28] MEDS: FAMOTIDINE 20 MG TABLET PO SCH ×2 (08:02→11:11)
[2019-01-28] MEDS: SUCRALFATE 1 GM TABLET PO SCH ×2 (08:02→11:11)
[2019-01-28] MEDS: METOCLOPRAMIDE HCL 10 MG TABLET PO SCH ×2 (08:02→11:11)
[2019-01-28] MEDS: LIPASE/PROTEASE/AMYLASE 1 CAP CAPSULE.DR PO SCH ×2 (08:02→11:11)
[2019-01-28 11:30] VITALS: BP 115/74
== END 2019-01-28 14:18 | disposition home or self-care (01) | DRG 440 ==
LOC: ER 18:55 → EH 01-26 01:58 → 4N 01-26 12:39
PROVIDERS: ADMIT Emergency Medicine; ATTEND Emergency Medicine
DX: K85.90 Acute pancreatitis without necrosis or infection, unspecified (principal); D72.829 Elevated white blood cell count, unspecified; F17.210 Nicotine dependence, cigarettes, uncomplicated
CPT/HCPCS: 36415; 74177; 76705; 80048; 80053; 80061; 81001; 82150; 83690; 83735; 84443; 84481; 84702; 85025; 85027; 96361; 96372; 96374; 96376; 99285; J1644; J1885; J2270; J3010; J3490; J7120; J7121; S0119

== ENCOUNTER 2019-01-29 22:40 | Inpatient (IN) | payer SELFPAY ==
[2019-01-30] MEDS ORDERED: ONDANSETRON HCL INJ/PF 4 MG/2 ML SDV IV ONE (02:09)
--- NOTE | 2019-01-30 02:15 | ER Document Report ---
ED General - General Chief Complaint: Breast Problem Stated Complaint: LEFT BREAST PAIN Time Seen by Provider: 01/30/19 02:02 TRAVEL OUTSIDE OF THE [place] IN LAST 30 DAYS: No - HPI Notes: Patient is a 33-year-old female presents emergency department for evaluation of epigastric pain with radiation up in her left chest. She was actually just discharged from the hospital on Tuesday for acute pancreatitis. She states she was feeling better but now feels worse. She has nausea but no emesis. She states the pain was just epigastric, now radiates up into her left breast. It is sharp and stabbing, nothing seems to make it better or worse. She states that she has pain medication at home but it is "not helping." - Related Data Allergies/Adverse Reactions: No Known Allergies Allergy (Unverified 01/25/19 19:12) Past Medical History - General Information source: Patient - Social History Smoking Status: Current Every Day Smoker Frequency of alcohol use: Occasional Family History: Reviewed & Not Pertinent. denies: CAD, DM, Hyperlipidemia, Hypertension, Malignancy Patient has suicidal ideation: No Patient has homicidal ideation: No - Past Medical History Cardiac Medical History: Denies: Hx Coronary Artery Disease, Hx Hypertension Pulmonary Medical History: Denies: Hx Asthma, Hx COPD Neurological Medical History: Denies: Hx Migraine, Hx Seizures Endocrine Medical History: Denies: Hx Diabetes Mellitus Type 1, Hx Diabetes [place] itus Type 2, Hx Hyperthyroidism, Hx Hypothyroidism GI Medical History: Reports: Hx Pancreatitis. Denies: Hx Cirrhosis, Hx Hepatitis Musculoskeletal Medical History: Denies Hx Arthritis, Denies Hx Gout Skin Medical History: Denies Hx Eczema, Denies Hx Psoriasis Infectious Medical History: Denies: Hx Hepatitis Review of Systems - Review of Systems Constitutional: No symptoms reported EENT: No symptoms reported Cardiovascular: No symptoms reported Respiratory: No symptoms reported Gastrointestinal: See HPI Genitourinary: No symptoms reported Female Genitourinary: No symptoms reported Musculoskeletal: No symptoms reported Skin: No symptoms reported Neurological/Psychological: No symptoms reported Physical Exam - Vital signs Vitals: Temp Pulse Resp BP Pulse Ox 99.7 F 107 H 17 119/73 98 01/29/19 23:06 01/29/19 23:06 01/29/19 23:06 01/29/19 23:06 01/29/19 23:06 - Notes Notes: This is a disheveled appearing 33-year-old female who appears her stated age, in no acute distress. Vital signs reviewed, please refer to chart. Head is normocephalic, atraumatic. Pupils equal round, reactive to light. Neck is supple without meningismus. Heart is regular rate and rhythm. Lungs are clear to auscultation bilaterally. Chest wall is markedly tender to palpation on the left inferior ribs, from the midclavicular to the mid axillary line. No crepitance, chest wall excursion is equal bilaterally. Abdomen is soft with moderate epigastric and left upper quadrant tenderness to palpation without rebound or guarding, bowel sounds throughout. Extremities without cyanosis, clubbing. Posterior calves are nontender. Peripheral pulses are equal. Skin is warm and dry. Patient is awake, alert, neurological exam is nonfocal. Course - Re-evaluation Re-evalutation: 01/30/19 06:00 Patient presents emergency department for evaluation of abdominal pain, vomiting. On further questioning she does have a minimal cough. On exam, initially, her temperature is 99.7. She is mildly tachycardic. She was given IV fluids. Laboratory investigations failed to reveal any significant elevation in her lipase, but her white count was elevated. Because of her chest wall tenderness and minimal cough I did order chest x-ray which revealed findings consistent with pneumonia. Patient was starting to feel improved here, but vital sign recheck revealed an elevated temperature of 102. Patient was given antipyretics, more fluids. She was treated with IV Levaquin. Will admit the patient for further care. - Vital Signs Vital signs: Temp Pulse Resp BP Pulse Ox 102.7 F H 107 H 18 126/68 H 96 01/30/19 05:45 01/29/19 23:06 01/30/19 05:27 01/30/19 05:27 01/30/19 05:27 - Laboratory Result Diagrams: 01/30/19 02:45 01/30/19 04:27 Laboratory results interpreted by me: 01/30/19 01/30/19 01/30/19 02:45 03:05 04:27 WBC 14.1 H RBC 3.58 L Hgb 10.8 L Hct 31.9 L Lymph % (Auto) 9.6 L Absolute Neuts (auto) 11.5 H Seg Neutrophils % 81.9 H Sodium 136.3 L BUN 6 L Glucose 111 H Total Bilirubin 1.7 H Direct Bilirubin 0.9 H Total Protein 6.1 L Albumin 3.3 L Lipase 336.1 H Urine Ketones 80 H Urine Urobilinogen 2.0 H - Diagnostic Test Radiology reviewed: Reports reviewed Radiology results interpreted by me: 01/30/19 06:01 Chest X-Ray 01/30/19 02:12 IMPRESSION: Left basilar airspace opacity, likely representing atelectasis or possibly pneumonia. copyright 2011 [employer]- All Rights Reserved Discharge - Discharge Clinical Impression: Nausea and vomiting Qualifiers: Vomiting type: unspecified Pneumonia Qualifiers: Pneumonia type: due to unspecified organism Laterality: left Fever Qualifiers: Fever type: unspecified Qualified Code(s): R50.9 - Fever, unspecified Condition: Stable Disposition: ADMITTED INPATIENT Admitting Provider: Jose (Hospitalist) Unit Admitted: Telemetry
[2019-01-30] MEDS: NORMAL SALINE 1000 ML 1,000 ML IV PRN ×4 (02:49→18:14)
[2019-01-30 03:24] LABS: APPEARANCE,URINE CLEAR; BILIRUBIN,URINE NEGATIVE (NEGATIVE); COLOR,URINE YELLOW; GLUCOSE, URINE NEGATIVE (NEGATIVE); KETONES,URINE 80 mg/dL (NEGATIVE); LEUKOCYTE ESTERASE,URINE NEGATIVE (NEGATIVE); NITRITE,URINE NEGATIVE (NEGATIVE); PROTEIN,URINE NEGATIVE (NEGATIVE); URINE SPECIFIC GRAVITY 1.011
--- NOTE | 2019-01-30 03:28 | RADIOLOGY REPORT (SQ) ---
EXAM DESCRIPTION: XR CHEST 2 VIEWS COMPLETED DATE/TME: 01/30/2019 02:12 CLINICAL HISTORY: 33 years, Female, pain into left chest COMPARISON: None. NUMBER OF VIEWS: Two TECHNIQUE: Two views of the chest LIMITATIONS: None. FINDINGS: There is a left basilar airspace opacity which is not seen on the lateral view. The heart is normal in size. There is no pneumothorax or pleural effusion. The bones are unremarkable. IMPRESSION: Left basilar airspace opacity, likely representing atelectasis or possibly pneumonia. copyright 2010 [employer]- All Rights Reserved
[2019-01-30 03:37] LABS: ABSOLUTE BASOPHILS # (AUTO) 0.1 10^3/uL (0.0-0.2); ABSOLUTE EOSINOPHILS # (AUTO) 0.2 10^3/uL (0.0-0.6); ABSOLUTE LYMPHOCYTES (AUTO) 1.4 10^3/uL (0.5-4.7); ABSOLUTE NEUT (AUTO) 11.5 10^3/uL (1.7-8.2); BASOPHILS % (AUTO) 0.4 % (0-2); EOSINOPHILS % (AUTO) 1.3 % (0-6); HEMATOCRIT 31.9 % (36.0-47.0); HEMOGLOBIN 10.8 g/dL (12.0-15.5); LYMPHOCYTES % (AUTO) 9.6 % (13-45); MEAN CORPUSCULAR HEMOGLOBIN 30.2 pg (27.0-33.4); MEAN CORPUSCULAR HGB CONC 33.9 g/dL (32.0-36.0); MEAN CORPUSCULAR VOLUME 89 fl (80-97); MONOCYTES % (AUTO) 6.8 % (3-13); PLATELET COUNT 340 10^3/uL (150-450); RED BLOOD COUNT 3.58 10^6/uL (3.72-5.28); RED CELL DISTRIBUTION WIDTH 13.8 % (11.5-14.0); SEGMENTED NEUTROPHILS % (AUTO) 81.9 % (42-78); TOTAL CELLS COUNTED % (AUTO) 100 %; WHITE BLOOD COUNT 14.1 10^3/uL (4.0-10.5)
[2019-01-30] MEDS ORDERED: MORPHINE SULFATE 10 MG/ML INJ IV ONE ×2 (03:54→06:23)
[2019-01-30] MEDS ORDERED: PROMETHAZINE HCL INJ 25 MG/1 ML VIAL IV ONE (03:55)
[2019-01-30] MEDS ORDERED: LEVOFLOXACIN 750 MG/D5W RTU 750 MG/150 ML RTUPB IV ONE (04:44)
[2019-01-30 05:34] LABS: ALBUMIN 3.3 g/dL (3.5-5.0); ALKALINE PHOSPHATASE 69 U/L (38-126); ANION GAP 11 (5-19); ASPARTATE AMINO TRANSFERASE 25 U/L (14-36); BILIRUBIN,DIRECT 0.9 mg/dL (0.0-0.4); BILIRUBIN,TOTAL 1.7 mg/dL (0.2-1.3); BLOOD UREA NITROGEN 6 mg/dL (7-20); CALCIUM 8.5 mg/dL (8.4-10.2); CARBON DIOXIDE 24 mmol/L (22-30); CHLORIDE 101 mmol/L (98-107); GLUCOSE 111 mg/dL (75-110); POTASSIUM 3.9 mmol/L (3.6-5.0); TOTAL PROTEIN 6.1 g/dL (6.3-8.2)
[2019-01-30] MEDS ORDERED: ACETAMINOPHEN 325 MG TABLET PO ONE (05:50)
[2019-01-30] MEDS ORDERED: NORMAL SALINE 1000 ML 1,000 ML IV ONE (05:59)
[2019-01-30] MEDS ORDERED: DEXTROSE 50%-WATER 25 GM/50 ML DISP.SYRIN IV PRN ×2 (08:15)
[2019-01-30] MEDS ORDERED: GLUCAGON,HUMAN RECOMB 1 MG INJ SUBCUT PRN (08:15)
[2019-01-30] MEDS ORDERED: DEXTROSE 40% GEL 15 GM TUBE PO PRN ×2 (08:15)
[2019-01-30] MEDS ORDERED: ALBUTEROL SULFATE 0.083% NEB 2.5 MG/3 ML AMPUL NEB PRN (08:54)
[2019-01-30] MEDS ORDERED: MAG HYDROX/AL HYDROX/SIMETH SUSP 30 ML UDCUP PO PRN (09:00)
[2019-01-30] MEDS ORDERED: PROMETHAZINE HCL INJ 25 MG/1 ML VIAL IV PRN (09:00)
[2019-01-30] MEDS ORDERED: ONDANSETRON HCL INJ/PF 4 MG/2 ML SDV IV PRN (09:00)
[2019-01-30] MEDS ORDERED: NICOTINE 7 MG/24 HR PATCH.TD24 TD PRN (09:02)
[2019-01-30] MEDS: KETOROLAC TROMETHAMINE INJ/PF 30 MG/1 ML SDV IV PRN ×2 (09:15→19:55)
--- NOTE | 2019-01-30 11:34 | RADIOLOGY REPORT (SQ) ---
EXAM DESCRIPTION: CT ABD/PELVIS WITH IV ONLY COMPLETED DATE/TIME: 01/30/2019 11:14 am REASON FOR STUDY: ABD pain, fever, leukocytosis COMPARISON: 01/26/2015 TECHNIQUE: CT scan of the abdomen and pelvis performed using helical scanning technique with dynamic intravenous contrast injection. No oral contrast. Images reviewed with lung, soft tissue, and bone windows. Reconstructed coronal and sagittal MPR images reviewed. Delayed images for evaluation of the urinary system also acquired. All images stored on PACS. All CT scanners at this facility use dose modulation, iterative reconstruction, and/or weight based d osing when appropriate to reduce radiation dose to as low as reasonably achievable (ALARA). [facility]: Dose Right [facility]: CareDose [facility]: Dose Right [facility]: Teradose 4D [facility]: [employer] CONTRAST TYPE AND DOSE: contrast/concentration: Isovue 350.00 mg/ml; Total Contrast Delivered: 100.0 ml; Total Saline Delivered: 72.0 ml RENAL FUNCTION: BUN 6 creatinine 0.7 RADIATION DOSE: CT Rad equipment meets quality standard of care and radiation dose reduction techniq ues were employed. CTDIvol: 17.6 - 19.5 mGy. DLP: 2056 mGy-cm.. LIMITATIONS: None. FINDINGS: LOWER CHEST: No significant findings. No nodules or infiltrates. LIVER: Decreased attenuation. No mass. SPLEEN: Normal size. No focal lesions. PANCREAS: Pancreatic edema. Peripancreatic edema and fluid. Peripancreatic fluid is increased. The re is no definable fluid collection that is suggestive of a pancreatic pseudocyst. GALLBLADDER: No identified stones by CT criteria. No inflammatory changes to suggest cholecystitis. ADRENAL GLANDS: No significant masses or asymmetry. RIGHT KIDNEY AND URETER: No solid masses. No significant calcifications. No hydronephrosis or hyd roureter. LEFT KIDNEY AND URETER: No solid masses. No significant calcifications. No hydronephrosis or hydr oureter. AORTA AND VESSELS: No aneurysm. No dissection. Renal arteries, SMA, celiac without stenosis. RETROPERITONEUM: No retroperitoneal adenopathy, hemorrhage or masses. BOWEL AND PERITONEAL CAVITY: No masses or inflammatory changes. No free fluid or peritoneal masses. APPENDIX: Not identified. PELVIS: No mass. No free fluid. Normal bladder. ABDOMINAL WALL: No masses. No hernias. BONES: No significant or acute findings. OTHER: No other significant finding. IMPRESSION: There is slight worsening of acute pancreatitis. Fatty infiltration of the liver. TECHNICAL DOCUMENTATION: JOB ID: [id number] Quality ID # [id number]: Final reports with documentation of one or more dose reduction techniques (e.g., Au tomated exposure control, adjustment of the mA and/or kV according to patient size, use of iterative reconstruction technique) 2010 [employer]- All Rights Reserved Reading location - IP/workstation name: [email or web address]
[2019-01-30] MEDS: MORPHINE SULFATE 10 MG/ML INJ IV PRN ×3 (11:44→23:45)
[2019-01-30] MEDS: HEPARIN SOD (PORCINE) 5,000 UNIT/ML 1 ML VIAL SUBCUT SCH ×2 (13:52→21:34)
[2019-01-30] MEDS: PANTOPRAZOLE SODIUM 40 MG TABLET.DR PO SCH (16:53)
--- NOTE | 2019-01-30 17:09 | PDOC H&P ---
History of Present Illness Admission Date/PCP: 01/30/19 06:43 Patient complains of: Abdominal pain History of Present Illness: DARRELL BIRCH is a 33 year old female with a past medical history of pancreatitis, obesity, and tobacco dependence with continuous use who presented to the emergency department today with a complaint of increased abdominal pain unrelieved by her prescribed oxycodone, nausea with vomiting, intolerance of food, and shortness of breath related to increased abdominal pain upon inspiration. Evaluation in the emergency department revealed a fever of 102.7, otherwise normal vital signs, leukocytosis (WBC 14.1), anemia (Hgb 10.8; stable from previous discharge), mildly elevated total bilirubin, lipase of 336 (down from 15,000 last admission), normal urinalysis, negative toxicology and chest x- ray demonstrating left basilar atelectasis versus pneumonia Patient was referred to the hospitalist service for admission and management of the above-stated complaints and findings. Past Medical History Cardiac Medical History: Denies: Coronary Artery Disease, Hypertension Pulmonary Medical History: Denies: Asthma, Chronic Obstructive Pulmonary Disease (COPD) Neurological Medical History: Denies: Migraine, Seizures Endocrine Medical History: Reports: Obesity Denies: Diabetes Mellitus Type 1, Diabetes Mellitus Type 2, Hyperthyroidism, Hypothyroidism GI Medical History: Reports: Other - Pancreatitis Denies: Cirrhosis, Hepatitis Musculoskeltal Medical History: Denies: Arthritis, Gout Skin Medical History: Denies: Eczema, Psoriasis Psychiatric Medical History: Reports: Tobacco Dependency Hematology: Denies: Anemia, Bleeding Tendencies Past Surgical History Past Surgical History: Reports: None Social History Information Source: Patient Smoking Status: Current Every Day Smoker Electronic Cigarette use?: No Frequency of Alcohol Use: Social Hx Recreational Drug Use: No Drugs: None Hx Prescription Drug Abuse: No - Advance Directive Resuscitation Status: Full Code Family History Family History: Reviewed & Not Pertinent. denies: CAD, DM, Hyperlipidemia, Hypertension, Malignancy Parental Family History Reviewed: Yes Children Family History Reviewed: Yes Sibling(s) Family History Reviewed.: Yes Medication/Allergy Home Medications: Hydrocodone/Acetaminophen [[place] 5-325 mg Tablet] 1 tab PO Q8HP PRN 01/30/19 Loratadine [Claritin 10 mg Tablet] 10 mg PO DAILYP PRN 01/30/19 Ondansetron HCl [Zofran 4 mg Tablet] 4 mg PO Q4HP PRN 01/30/19 Allergies/Adverse Reactions: No Known Allergies Allergy (Unverified 01/25/19 19:12) Review of Systems Constitutional: PRESENT: fever(s), headache(s). ABSENT: chills, weight gain, weight loss Eyes: ABSENT: visual disturbances Ears: ABSENT: hearing changes Cardiovascular: ABSENT: chest pain, dyspnea on exertion, edema, orthropnea, palpitations Respiratory: ABSENT: cough, hemoptysis Gastrointestinal: PRESENT: abdominal pain, nausea, vomiting. ABSENT: constipation, diarrhea, hematemesis, hematochezia Genitourinary: ABSENT: dysuria, hematuria Musculoskeletal: ABSENT: joint swelling Integumentary: ABSENT: rash, wounds Neurological: ABSENT: abnormal gait, abnormal speech, confusion, dizziness, focal weakness, syncope Psychiatric: ABSENT: anxiety, depression, homidical ideation, suicidal ideation Endocrine: ABSENT: cold intolerance, heat intolerance, polydipsia, polyuria Hematologic/Lymphatic: ABSENT: easy bleeding, easy bruising Physical Exam Vital Signs: Temp Pulse Resp BP Pulse Ox 98.1 F 88 17 120/62 91 L 01/30/19 12:58 01/30/19 12:58 01/30/19 12:58 01/30/19 12:58 01/30/19 12:58 Intake & Output 01/29/19 01/30/19 01/31/19 06:59 06:59 06:59 Intake Total 2150 1000 Balance 2150 1000 Weight 99.8 kg General appearance: PRESENT: no acute distress, cooperative, obese, well- developed, well-nourished Head exam: PRESENT: atraumatic, normocephalic Eye exam: PRESENT: conjunctiva pink, EOMI, PERRLA. ABSENT: scleral icterus Mouth exam: PRESENT: moist, tongue midline Neck exam: ABSENT: carotid bruit, JVD, lymphadenopathy, thyromegaly Respiratory exam: PRESENT: clear to auscultation marc, decreased breath sounds - Bibasilar, symmetrical, unlabored. ABSENT: rales, rhonchi, wheezes Cardiovascular exam: PRESENT: RRR, +S1, +S2. ABSENT: diastolic murmur, rubs, systolic murmur Vascular exam: PRESENT: normal capillary refill GI/Abdominal exam: PRESENT: distended, hypoactive bowel sounds, soft, tenderness, other - Rotund. ABSENT: guarding, mass, organolmegaly, rebound Rectal exam: PRESENT: deferred Extremities exam: PRESENT: full ROM. ABSENT: calf tenderness, clubbing, pedal edema Neurological exam: PRESENT: alert, awake, oriented to person, oriented to place, oriented to time, oriented to situation, CN II-XII grossly intact. ABSENT: motor sensory deficit Psychiatric exam: PRESENT: appropriate affect, normal mood. ABSENT: homicidal ideation, suicidal ideation Skin exam: PRESENT: dry, intact, warm. ABSENT: cyanosis, rash Results Laboratory Results: 01/30/19 02:45 01/30/19 04:27 01/30/19 01/30/19 01/30/19 02:45 02:45 02:45 WBC 14.1 H RBC 3.58 L Hgb 10.8 L Hct 31.9 L MCV 89 MCH 30.2 MCHC 33.9 RDW 13.8 Plt Count 340 Seg Neutrophils % 81.9 H Sodium Cancelled Potassium Cancelled Chloride Cancelled Carbon Dioxide Cancelled Anion Gap Cancelled BUN Cancelled Creatinine Cancelled Est GFR ( Amer) Cancelled Est GFR (Non-Af Amer) Cancelled Glucose Cancelled Calcium Cancelled Total Bilirubin Cancelled AST Cancelled Alkaline Phosphatase Cancelled Total Protein Cancelled Albumin Cancelled Lipase Cancelled Serum HCG, Qual NEGATIVE Urine Color Urine Appearance Urine pH Ur Specific [place] Urine Protein Urine Glucose (UA) Urine Ketones Urine Blood Urine Nitrite Ur Leukocyte Esterase Urine WBC (Auto) Urine RBC (Auto) 01/30/19 01/30/19 03:05 04:27 WBC RBC Hgb Hct MCV MCH MCHC RDW Plt Count Seg Neutrophils % Sodium 136.3 L Potassium 3.9 Chloride 101 Carbon Dioxide 24 Anion Gap 11 BUN 6 L Creatinine 0.70 Est GFR ( Amer) > 60 Est GFR (Non-Af Amer) Glucose 111 H Calcium 8.5 Total Bilirubin 1.7 H AST 25 Alkaline Phosphatase 69 Total Protein 6.1 L Albumin 3.3 L Lipase 336.1 H Serum HCG, Qual Urine Color YELLOW Urine Appearance CLEAR Urine pH 8.0 Ur Specific [place] 1.011 Urine Protein NEGATIVE Urine Glucose (UA) NEGATIVE Urine Ketones 80 H Urine Blood NEGATIVE Urine Nitrite NEGATIVE Ur Leukocyte Esterase NEGATIVE Urine WBC (Auto) 3 Urine RBC (Auto) 2 Impressions: Abdomen/Pelvis CT 01/30/19 00:00 IMPRESSION: There is slight worsening of acute pancreatitis. Fatty infil tration of the liver. Chest X-Ray 01/30/19 02:12 IMPRESSION: Left basilar airspace opacity, likely representing atelectasis or possibly pneumonia. copyright 2010 [employer]- All Rights Reserved Assessment and Plan - Diagnosis (1) Pancreatitis Qualifiers: Chronicity: acute Pancreatitis type: unspecified pancreatitis type Acute pancreatitis complication: unspecified Qualified Code(s): K85.90 - Acute pancreatitis without necrosis or infection, unspecified Is this a current diagnosis for this admission?: Yes Plan: Leukocytosis 14.1; slight increase from discharge 01/28/2019. At that time WBCs were 12.9. Patient is febrile with temperature of 102. She has continued abdominal pain, nausea, and vomiting that is unmanaged by prescribed oral medications. Lipase is decreased to 336. Today she is also noted down from 15,000 and at time of her prior admission on 01/25/2019. Total bilirubin slightly elevated at 1.7. Of note cholesterol panel from last admission showed HDL 24, LDL 57, triglycerides 387, total cholesterol 149. A1c was not checked. Abdominal ultrasound (01/26/2019) revealed fatty liver without acute findings. No gallbladder disease. Repeat CT abdomen and pelvis with contrast today showed Slight worsening of acute pancreatitis with fatty infiltration of the liver. Hepatitis panel pending. The patient is admitted to the medical floor. She is maintained in n.p.o. status with ice chips only. Continue IV fluids. Antiemetics and analgesics as needed. Accu-Cheks every 6 hours with sliding scale insulin and hypoglycemia protocol in place. Keep in mind patient should discharge with fenofibrate for management of her hypertriglyceridemia. (2) Abdominal pain Qualifiers: Abdominal location: epigastric Qualified Code(s): R10.13 - Epigastric pain Is this a current diagnosis for this admission?: Yes Plan: Secondary to #1; evaluation and management as above. (3) Nausea and vomiting Qualifiers: Vomiting type: unspecified Is this a current diagnosis for this admission?: Yes Plan: Secondary to #1; evaluation and management as above. (4) Leukocytosis Qualifiers: Leukocytosis type: unspecified Qualified Code(s): D72.829 - Elevated white blood cell count, unspecified Is this a current diagnosis for this admission?: Yes Plan: Secondary to #1; evaluation and management as above. Blood cultures are pending. No indications for antibiotic therapy at this time. (5) Tobacco dependence Is this a current diagnosis for this admission?: Yes Plan: Smoking cessation encouraged. Nicotine replacement therapies are provided. (6) Pneumonia Is this a current diagnosis for this admission?: No Plan: Ruled out. CT was negative for acute findings in the lower chest; no nodules or infiltrates. Patient clearly indicates that her dyspnea is related to increased abdominal pain upon inspiration. - Time Time Spent with patient: 35 or more minutes Medications reviewed and adjusted accordingly: Yes Anticipated discharge: Home Within: within 48 hours
[2019-01-30] MEDS: INSULIN LISPRO 100 UNIT/ML 3 ML VIAL SUBCUT SCH (17:28)
[2019-01-30] MEDS: IPRATROPIUM/ALBUTEROL 0.5-2.5 MG/3 ML AMPUL NEB SCH (20:37)
[2019-01-31] MEDS: ACETAMINOPHEN 325 MG TABLET PO PRN ×2 (02:01→17:29)
[2019-01-31] MEDS: NORMAL SALINE 1000 ML 1,000 ML IV PRN ×2 (02:40→10:50)
[2019-01-31] MEDS ORDERED: MORPHINE SULFATE 10 MG/ML INJ IV ONE ×2 (03:00→10:00)
[2019-01-31] MEDS: INSULIN LISPRO 100 UNIT/ML 3 ML VIAL SUBCUT SCH ×4 (03:20→17:00)
[2019-01-31] MEDS: HEPARIN SOD (PORCINE) 5,000 UNIT/ML 1 ML VIAL SUBCUT SCH ×3 (05:28→21:38)
[2019-01-31] MEDS: PANTOPRAZOLE SODIUM 40 MG TABLET.DR PO SCH ×2 (05:32→16:59)
[2019-01-31 06:21] LABS: HEMATOCRIT 26.4 % (36.0-47.0); MEAN CORPUSCULAR HEMOGLOBIN 30.2 pg (27.0-33.4); MEAN CORPUSCULAR VOLUME 89 fl (80-97); PLATELET COUNT 315 10^3/uL (150-450); RED BLOOD COUNT 2.97 10^6/uL (3.72-5.28); RED CELL DISTRIBUTION WIDTH 13.8 % (11.5-14.0)
[2019-01-31 06:43] LABS: ANION GAP 12 (5-19); BLOOD UREA NITROGEN 7 mg/dL (7-20); CARBON DIOXIDE 20 mmol/L (22-30); CHLORIDE 107 mmol/L (98-107); GLUCOSE 78 mg/dL (75-110); POTASSIUM 3.6 mmol/L (3.6-5.0)
[2019-01-31] MEDS: MORPHINE SULFATE 10 MG/ML INJ IV PRN ×4 (07:51→21:38)
[2019-01-31] MEDS: IPRATROPIUM/ALBUTEROL 0.5-2.5 MG/3 ML AMPUL NEB SCH ×2 (08:18→19:59)
[2019-01-31 09:26] LABS: APPEARANCE,URINE CLEAR; BILIRUBIN,URINE NEGATIVE (NEGATIVE); COLOR,URINE YELLOW; GLUCOSE, URINE NEGATIVE (NEGATIVE); KETONES,URINE 80 mg/dL (NEGATIVE); PROTEIN,URINE NEGATIVE (NEGATIVE); URINE SPECIFIC GRAVITY 1.014
[2019-01-31] MEDS: KETOROLAC TROMETHAMINE INJ/PF 30 MG/1 ML SDV IV PRN ×3 (09:48→23:39)
[2019-01-31 10:36] LABS: HEPATITS B SURFACE ANTIGEN Negative (Negative)
[2019-01-31] MEDS: IMIPENEM/CILASTATIN SODIUM 500 MG in NORMAL SALINE 100 ML IV SCH ×2 (12:36→17:04)
[2019-01-31 12:38] LABS: HEPATITIS C VIRUS ANTIBODY <0.1 s/co ratio (0.0-0.9)
--- NOTE | 2019-01-31 20:04 | PDOC PROGRESS REPORT ---
Subjective Progress Note for:: 01/31/19 Subjective:: DARRELL BIRCH is a 33 year old female with a past medical history of pancreatitis, obesity, and tobacco dependence with continuous use who was admitted 01/30/2019 for acute pancreatitis. Next Patient was seen on morning rounds. She is found resting in bed comfortably on supplemental oxygen via nasal cannula. She is maintaining oxygen saturations in the high 90s while on room air; I am uncertain why she was placed back on oxygen. She does report that her dyspnea has resolved entirely; her shortness of breath was actually related to increased abdominal discomfort upon inspiration. She reports that her abdominal discomfort is persistent, epigastric, radiates to her back on occasion, but well-controlled with morphine at this time. She denies any nausea or vomiting episodes and is requesting to advance her diet today. We did discuss that this may potentially exacerbate her discomfort. She continues to have temperatures greater than 101. She otherwise denies chest pain, palpitations, dyspnea, orthopnea, nausea vomiting, and diarrhea. She has no other questions or concerns at this time. No concerns per nursing Reason For Visit: SIRS,FEVER,LEUKOCYTOSIS Physical Exam Vital Signs: Temp Pulse Resp BP Pulse Ox 99.4 F 109 H 20 132/67 H 94 01/31/19 18:49 01/31/19 16:15 01/31/19 16:15 01/31/19 16:15 01/31/19 16:15 Intake & Output 01/30/19 01/31/19 02/01/19 06:59 06:59 06:59 Intake Total 2150 3000 1260 Balance 2150 3000 1260 Weight 99.8 kg 99.5 kg General appearance: PRESENT: no acute distress, morbidly obese, well-developed, well-nourished Head exam: PRESENT: atraumatic, normocephalic Eye exam: PRESENT: conjunctiva pink, EOMI, PERRLA. ABSENT: scleral icterus Ear exam: PRESENT: normal external ear exam Mouth exam: PRESENT: moist, tongue midline Respiratory exam: PRESENT: clear to auscultation marc, symmetrical, unlabored. ABSENT: rales, rhonchi, wheezes Cardiovascular exam: PRESENT: RRR, +S1, +S2. ABSENT: diastolic murmur, rubs, systolic murmur Pulses: PRESENT: normal dorsalis pedis pul Vascular exam: PRESENT: normal capillary refill GI/Abdominal exam: PRESENT: normal bowel sounds, soft, tenderness. ABSENT: distended, guarding, mass, organolmegaly, rebound Rectal exam: PRESENT: deferred Extremities exam: PRESENT: full ROM. ABSENT: calf tenderness, clubbing, pedal edema Neurological exam: PRESENT: alert, awake, oriented to person, oriented to place, oriented to time, oriented to situation, CN II-XII grossly intact. ABSENT: motor sensory deficit Psychiatric exam: PRESENT: flat affect, normal mood. ABSENT: homicidal ideation, suicidal ideation Skin exam: PRESENT: dry, intact, warm. ABSENT: cyanosis, rash Results Laboratory Results: 01/31/19 06:00 01/31/19 06:00 01/31/19 01/31/19 01/31/19 06:00 06:00 06:00 WBC 13.0 H RBC 2.97 L Hgb 9.0 L Hct 26.4 L MCV 89 MCH 30.2 MCHC 34.0 RDW 13.8 Plt Count 315 Sodium 138.5 Potassium 3.6 Chloride 107 Carbon Dioxide 20 L Anion Gap 12 BUN 7 Creatinine 0.60 Est GFR ( Amer) > 60 Glucose 78 Calcium 8.0 L Lipase 204.6 Urine Color Urine Appearance Urine pH Ur Specific [place] Urine Protein Urine Glucose (UA) Urine Ketones Urine Blood Urine RBC (Auto) 01/31/19 09:02 WBC RBC Hgb Hct MCV MCH MCHC RDW Plt Count Sodium Potassium Chloride Carbon Dioxide Anion Gap BUN Creatinine Est GFR ( Amer) Glucose Calcium Lipase Urine Color YELLOW Urine Appearance CLEAR Urine pH 6.0 Ur Specific [place] 1.014 Urine Protein NEGATIVE Urine Glucose (UA) NEGATIVE Urine Ketones 80 H Urine Blood NEGATIVE Urine RBC (Auto) 1 Impressions: Abdomen/Pelvis CT 01/30/19 00:00 IMPRESSION: There is slight worsening of acute pancreatitis. Fatty infiltrat ion of the liver. Chest X-Ray 01/30/19 02:12 IMPRESSION: Left basilar airspace opacity, likely representing atelectasis or possibly pneumonia. copyright 2010 [employer]- All Rights Reserved Assessment and Plan - Diagnosis (1) Pancreatitis Qualifiers: Chronicity: acute Pancreatitis type: unspecified pancreatitis type Acute pancreatitis complication: unspecified Qualified Code(s): K85.90 - Acute pancreatitis without necrosis or infection, unspecified Is this a current diagnosis for this admission?: Yes Plan: Leukocytosis trending down. However, patient continues to have fevers greater than 101. Lipase continues to trend down. Total bilirubin slightly elevated at 1.7. Of note cholesterol panel from last admission showed HDL 24, LDL 57, triglycerides 387, total cholesterol 149. A1c 6.3% Abdominal ultrasound (01/26/2019) revealed fatty liver without acute findings. No gallbladder disease. Repeat CT abdomen and pelvis with contrast today showed Slight worsening of acute pancreatitis with fatty infiltration of the liver. Hepatitis panel negative The patient is admitted to the medical floor. Trial clear liquid diet; if no nausea or vomiting, may advance to a soft/low residue diet. Continue IV fluids. Antiemetics and analgesics as needed. We will plan on decreasing narcotic medications tomorrow. Accu-Cheks every 6 hours with sliding scale insulin and hypoglycemia protocol in place. Keep in mind patient should discharge with fenofibrate for management of her hypertriglyceridemia. (2) Abdominal pain Qualifiers: Abdominal location: epigastric Qualified Code(s): R10.13 - Epigastric pain Is this a current diagnosis for this admission?: Yes Plan: Secondary to #1; evaluation and management as above. (3) Nausea and vomiting Qualifiers: Vomiting type: unspecified Is this a current diagnosis for this admission?: Yes Plan: Resolved. Secondary to #1; evaluation and management as above. (4) Leukocytosis Qualifiers: Leukocytosis type: unspecified Qualified Code(s): D72.829 - Elevated white blood cell count, unspecified Is this a current diagnosis for this admission?: Yes Plan: Secondary to #1; evaluation and management as above. Trending down; 14.1-> 13.0 Blood cultures are negative at 24 hours Although leukocytosis is improved, patient continues to have high-grade temp. Repeat urinalysis is negative. No indications of upper respiratory illness, or proctitis/pneumonia. We will start imipenem, although I expect that the patient's leukocytosis and fever will continue to improve. (5) Tobacco dependence Is this a current diagnosis for this admission?: Yes Plan: Smoking cessation encouraged. Nicotine replacement therapies are provided. (6) Pneumonia Is this a current diagnosis for this admission?: No Plan: Ruled out. CT was negative for acute findings in the lower chest; no nodules or infiltrates. Patient clearly indicates that her dyspnea is related to increased abdominal pain upon inspiration. - Time Time Spent with patient: 25-34 minutes Medications reviewed and adjusted accordingly: Yes Anticipated discharge: Home Within: within 48 hours
[2019-02-01] MEDS: IMIPENEM/CILASTATIN SODIUM 500 MG in NORMAL SALINE 100 ML IV SCH ×5 (00:26→23:24)
[2019-02-01] MEDS: INSULIN LISPRO 100 UNIT/ML 3 ML VIAL SUBCUT SCH ×3 (00:36→11:33)
[2019-02-01] MEDS: NORMAL SALINE 1000 ML 1,000 ML IV PRN (01:18)
[2019-02-01] MEDS: MORPHINE SULFATE 10 MG/ML INJ IV PRN ×3 (03:59→15:06)
[2019-02-01] MEDS: PANTOPRAZOLE SODIUM 40 MG TABLET.DR PO SCH ×2 (05:19→16:45)
[2019-02-01] MEDS: ACETAMINOPHEN 325 MG TABLET PO PRN ×2 (05:19→16:45)
[2019-02-01] MEDS: HEPARIN SOD (PORCINE) 5,000 UNIT/ML 1 ML VIAL SUBCUT SCH ×3 (05:20→22:26)
[2019-02-01 05:28] LABS: HEMOGLOBIN 8.8 g/dL (12.0-15.5); MEAN CORPUSCULAR HEMOGLOBIN 30.2 pg (27.0-33.4); MEAN CORPUSCULAR HGB CONC 33.8 g/dL (32.0-36.0); MEAN CORPUSCULAR VOLUME 89 fl (80-97); PLATELET COUNT 340 10^3/uL (150-450); RED BLOOD COUNT 2.91 10^6/uL (3.72-5.28); RED CELL DISTRIBUTION WIDTH 13.9 % (11.5-14.0); WHITE BLOOD COUNT 11.3 10^3/uL (4.0-10.5)
[2019-02-01] MEDS: KETOROLAC TROMETHAMINE INJ/PF 30 MG/1 ML SDV IV PRN ×3 (05:52→18:39)
[2019-02-01 05:57] LABS: ALBUMIN 2.8 g/dL (3.5-5.0); ALKALINE PHOSPHATASE 59 U/L (38-126); ANION GAP 8 (5-19); ASPARTATE AMINO TRANSFERASE 27 U/L (14-36); BILIRUBIN,DIRECT 0.6 mg/dL (0.0-0.4); BILIRUBIN,TOTAL 1.2 mg/dL (0.2-1.3); BLOOD UREA NITROGEN 7 mg/dL (7-20); CARBON DIOXIDE 24 mmol/L (22-30); CHLORIDE 107 mmol/L (98-107); GLUCOSE 98 mg/dL (75-110); POTASSIUM 3.9 mmol/L (3.6-5.0); TOTAL PROTEIN 5.6 g/dL (6.3-8.2)
[2019-02-01] MEDS: IPRATROPIUM/ALBUTEROL 0.5-2.5 MG/3 ML AMPUL NEB SCH ×2 (08:35→20:12)
[2019-02-01] MEDS ORDERED: NORMAL SALINE 1000 ML 1,000 ML IV PRN ×3 (08:53→16:27)
[2019-02-01] MEDS ORDERED: OXYCODONE HCL IR 5 MG TABLET PO PRN (16:20)
--- NOTE | 2019-02-01 16:26 | PDOC PROGRESS REPORT ---
Subjective Progress Note for:: 02/01/19 Subjective:: DARRELL BIRCH is a 33 year old female with a past medical history of pancreatitis, obesity, and tobacco dependence with continuous use who was admitted 01/30/2019 for acute pancreatitis. Next Patient was seen on afternoon rounds with family present. She is found resting in bed comfortably on supplemental oxygen via nasal cannula. She reports that her abdominal discomfort is improved; tolerated soft, low residue diet today. No episodes of nausea or vomiting. She had an additional fever overnight greater than 101. She denies chest pain, palpitations, dyspnea, orthopnea. She has no other questions or concerns at this time. No concerns per nursing Reason For Visit: SIRS,FEVER,LEUKOCYTOSIS Physical Exam Vital Signs: Temp Pulse Resp BP Pulse Ox 97.6 F 97 16 125/86 H 93 02/01/19 11:07 02/01/19 11:07 02/01/19 11:07 02/01/19 11:07 02/01/19 11:07 Intake & Output 01/31/19 02/01/19 02/02/19 06:59 06:59 06:59 Intake Total 3000 2590 1000 Balance 3000 2590 1000 Weight 99.5 kg 99.4 kg General appearance: PRESENT: no acute distress, cooperative, obese, well- developed, well-nourished Head exam: PRESENT: atraumatic, normocephalic Eye exam: PRESENT: conjunctiva pink, EOMI, PERRLA. ABSENT: scleral icterus Ear exam: PRESENT: normal external ear exam Mouth exam: PRESENT: moist, tongue midline Respiratory exam: PRESENT: clear to auscultation marc, symmetrical, unlabored, other - Room air. ABSENT: rales, rhonchi, wheezes Cardiovascular exam: PRESENT: RRR, +S1, +S2. ABSENT: diastolic murmur, rubs, systolic murmur Pulses: PRESENT: normal dorsalis pedis pul Vascular exam: PRESENT: normal capillary refill GI/Abdominal exam: PRESENT: normal bowel sounds, soft, tenderness, other - Rotund. ABSENT: distended, guarding, mass, organolmegaly, rebound Rectal exam: PRESENT: deferred Extremities exam: PRESENT: full ROM. ABSENT: calf tenderness, clubbing, pedal edema Musculoskeletal exam: PRESENT: ambulatory Neurological exam: PRESENT: alert, awake, oriented to person, oriented to place, oriented to time, oriented to situation, CN II-XII grossly intact. ABSENT: motor sensory deficit Psychiatric exam: PRESENT: flat affect, normal mood. ABSENT: homicidal ideation, suicidal ideation Skin exam: PRESENT: dry, intact, warm. ABSENT: cyanosis, rash Results Laboratory Results: 02/01/19 04:19 02/01/19 04:19 02/01/19 02/01/19 04:19 04:19 WBC 11.3 H RBC 2.91 L Hgb 8.8 L Hct 26.0 L MCV 89 MCH 30.2 MCHC 33.8 RDW 13.9 Plt Count 340 Sodium 139.2 Potassium 3.9 Chloride 107 Carbon Dioxide 24 Anion Gap 8 BUN 7 Creatinine 0.67 Est GFR ( Amer) > 60 Glucose 98 Calcium 8.0 L Total Bilirubin 1.2 AST 27 Alkaline Phosphatase 59 Total Protein 5.6 L Albumin 2.8 L Impressions: Abdomen/Pelvis CT 01/30/19 00:00 IMPRESSION: There is slight worsening of acute pancreatitis. Fatty infiltration of the liver. Chest X-Ray 01/30/19 02:12 IMPRESSION: Left basilar airspace opacity, likely representing atelectasis or possibly pneumonia. copyright 2010 [employer]- All Rights Reserved Assessment and Plan - Diagnosis (1) Pancreatitis Qualifiers: Chronicity: acute Pancreatitis type: unspecified pancreatitis type Acute pancreatitis complication: unspecified Qualified Code(s): K85.90 - Acute pancreatitis without necrosis or infection, unspecified Is this a current diagnosis for this admission?: Yes Plan: Leukocytosis trending down. However, patient continues to have fevers greater than 101. Lipase now normal. Total bilirubin is improved; 1.2 Of note cholesterol panel from last admission showed HDL 24, LDL 57, triglycerides 387, total cholesterol 149. A1c 6.3% Abdominal ultrasound (01/26/2019) revealed fatty liver without acute findings. No gallbladder disease. Repeat CT abdomen and pelvis with contrast today showed Slight worsening of acute pancreatitis with fatty infiltration of the liver. Hepatitis panel negative The patient is admitted to the medical floor. Had advance to a soft/low residue diet; tolerated well IV fluids to KVO Antiemetics and analgesics as needed. Discontinue IV morphine; start sliding scale oxycodone. Continue IV imipenem secondary to continued fevers. Anticipate patient will be ready to discharge within 24 to 48 hours; would like to see the patient remain afebrile greater than 24 hours prior to discharge. Keep in mind patient should discharge with fenofibrate for management of her hypertriglyceridemia. (2) Abdominal pain Qualifiers: Abdominal location: epigastric Qualified Code(s): R10.13 - Epigastric pain Is this a current diagnosis for this admission?: Yes Plan: Secondary to #1; evaluation and management as above. (3) Nausea and vomiting Qualifiers: Vomiting type: unspecified Is this a current diagnosis for this admission?: Yes Plan: Resolved. Secondary to #1; evaluation and management as above. (4) Leukocytosis Qualifiers: Leukocytosis type: unspecified Qualified Code(s): D72.829 - Elevated white blood cell count, unspecified Is this a current diagnosis for this admission?: Yes Plan: Secondary to #1; evaluation and management as above. Trending down; 14.1-> 13.0-> 11.3 Blood cultures are negative at 48 hours Although leukocytosis is improved, patient continues to have high-grade temp. Repeat urinalysis is negative. No indications of upper respiratory illness, or bronchitis/pneumonia. Continue imipenem for pancreatitis, although I expect that the patient's leukocytosis and fever will continue to improve. (5) Tobacco dependence Is this a current diagnosis for this admission?: Yes Plan: Smoking cessation encouraged. Nicotine replacement therapies are provided. (6) Pneumonia Is this a current diagnosis for this admission?: No Plan: Ruled out. CT was negative for acute findings in the lower chest; no nodules or infiltrates. Patient clearly indicates that her dyspnea is related to increased abdominal pain upon inspiration. - Time Time Spent with patient: 25-34 minutes Medications reviewed and adjusted accordingly: Yes Anticipated discharge: Home Within: within 24 hours
[2019-02-01] MEDS: OXYCODONE HCL IR 5 MG TABLET PO PRN (20:38)
[2019-02-02] MEDS: OXYCODONE HCL IR 5 MG TABLET PO PRN ×3 (02:40→14:55)
[2019-02-02] MEDS: IMIPENEM/CILASTATIN SODIUM 500 MG in NORMAL SALINE 100 ML IV SCH ×2 (05:21→11:51)
[2019-02-02] MEDS: PANTOPRAZOLE SODIUM 40 MG TABLET.DR PO SCH (05:21)
[2019-02-02] MEDS: ACETAMINOPHEN 325 MG TABLET PO PRN (05:21)
[2019-02-02] MEDS: HEPARIN SOD (PORCINE) 5,000 UNIT/ML 1 ML VIAL SUBCUT SCH ×2 (05:22→14:34)
[2019-02-02 05:32] LABS: HEMOGLOBIN 9.1 g/dL (12.0-15.5); MEAN CORPUSCULAR HEMOGLOBIN 30.1 pg (27.0-33.4); MEAN CORPUSCULAR HGB CONC 33.8 g/dL (32.0-36.0); MEAN CORPUSCULAR VOLUME 89 fl (80-97); PLATELET COUNT 434 10^3/uL (150-450); RED BLOOD COUNT 3.03 10^6/uL (3.72-5.28); WHITE BLOOD COUNT 11.8 10^3/uL (4.0-10.5)
[2019-02-02] MEDS: IPRATROPIUM/ALBUTEROL 0.5-2.5 MG/3 ML AMPUL NEB SCH (08:08)
[2019-02-02] MEDS: KETOROLAC TROMETHAMINE INJ/PF 30 MG/1 ML SDV IV PRN (10:06)
[2019-02-02 15:43] VITALS: BP 132/82
--- NOTE | 2019-02-03 16:24 | PDOC DISCHARGE SUMMARY ---
Impression - Admit/DC Date/PCP Admission Date/Primary Care Provider: 01/30/19 06:43 Discharge Date: 02/02/19 - Discharge Diagnosis (1) Pancreatitis Is this a current diagnosis for this admission?: Yes (2) Abdominal pain Is this a current diagnosis for this admission?: Yes (3) Nausea and vomiting Is this a current diagnosis for this admission?: Yes (4) Leukocytosis Is this a current diagnosis for this admission?: Yes (5) Tobacco dependence Is this a current diagnosis for this admission?: Yes (6) Pneumonia Is this a current diagnosis for this admission?: No - Additional Information Resuscitation Status: Full Code Discharge Diet: Other (Comments) Discharge Activity: Activity As Tolerated, Balance Activity w/Rest Referrals: [facility] [Outside] - 02/09/19 1:00 pm Prescriptions: Nicotine [Nicoderm 7 mg/24 Hr Transdermal Patch] 1 each TD DAILYP PRN #30 patch.td24 PRN Reason: Oxycodone HCl [Oxy-Ir 5 mg Tablet] 5 mg PO Q4HP PRN #20 tablet PRN Reason: Pantoprazole Sodium [Protonix [address] Tablet] 40 mg PO DAILY #30 tablet. Ondansetron HCl [Zofran 4 mg Tablet] 4 mg PO Q4HP PRN #20 PRN Reason: For Nausea/Vomiting Home Medications: Loratadine [Claritin 10 mg Tablet] 10 mg PO DAILYP PRN 01/30/19 Acetaminophen [Tylenol 325 mg Tablet] 650 mg PO Q4HP PRN tablet 02/02/19 Nicotine [Nicoderm 7 mg/24 Hr Transdermal Patch] 1 each TD DAILYP PRN #30 patch.td24 02/02/19 Ondansetron HCl [Zofran 4 mg Tablet] 4 mg PO Q4HP PRN #20 02/02/19 Oxycodone HCl [Oxy-Ir 5 mg Tablet] 5 mg PO Q4HP PRN #20 tablet 02/02/19 Pantoprazole Sodium [Protonix [address] Tablet] 40 mg PO DAILY #30 tablet. 02/02/19 History of Present Illiness History of Present Illness: DARRELL BIRCH is a 33 year old female with a past medical history of pancreatitis, obesity, and tobacco dependence with continuous use who presented to the emergency department today with a complaint of increased abdominal pain unrelieved by her prescribed oxycodone, nausea with vomiting, intolerance of food, and shortness of breath related to increased abdominal pain upon inspiration. Evaluation in the emergency department revealed a fever of 102.7, otherwise normal vital signs, leukocytosis (WBC 14.1), anemia (Hgb 10.8; stable from previous discharge), mildly elevated total bilirubin, lipase of 336 (down from 15,000 last admission), normal urinalysis, negative toxicology and chest x- ray demonstrating left basilar atelectasis versus pneumonia Patient was referred to the hospitalist service for admission and management of the above-stated complaints and findings. Hospital Course Hospital Course: The patient was admitted to the medical floor. She was initially placed in n.p.o. status and supported with IV fluids, antiemetics, and analgesics as needed. Due to the patient's continued temperatures greater than 101, she was empirically placed on imipenem. Her symptoms rapidly improved, leukocytosis has trended down, and lipase has returned to normal. The patient has been afebrile greater than 36 hours and so IV antibiotics were discontinued. The patient was advanced to a clear liquid diet and when that was tolerated well into a soft/bland diet. She did not experience increase in her symptoms and laboratory evaluation remained stable. She is now tolerating a bland diet without nausea and with adequately controlled pain utilizing oxycodone. She is requesting to be discharged home. At time of discharge, patient is in stable condition, maintaining oxygen saturations on room air, ambulatory, and tolerating a regular diet with adequate p.o. intake. She is discharged to home with self-care. She is instructed to follow-up with her primary care doctor within 1 week. She is advised to eat a bland diet to advance slowly as tolerated. She is further advised to avoid tobacco and alcohol products. She is instructed to drink plenty of water. She is encouraged to return to emergency department as needed for concerning symptoms. Physical Exam Vital Signs: Temp Pulse Resp BP Pulse Ox 99.1 F 92 18 132/82 H 92 02/02/19 15:40 02/02/19 15:40 02/02/19 15:40 02/02/19 15:40 02/02/19 15:40 Intake & Output 02/02/19 02/03/19 02/04/19 06:59 06:59 06:59 Intake Total 2728 Balance 2728 Weight 100.5 kg General appearance: PRESENT: no acute distress, morbidly obese, well-developed, well-nourished Head exam: PRESENT: atraumatic, normocephalic Eye exam: PRESENT: conjunctiva pink, EOMI, PERRLA. ABSENT: scleral icterus Ear exam: PRESENT: normal external ear exam Mouth exam: PRESENT: moist, tongue midline Respiratory exam: PRESENT: clear to auscultation marc, symmetrical, unlabored. ABSENT: rales, rhonchi, wheezes Cardiovascular exam: PRESENT: RRR, +S1, +S2. ABSENT: diastolic murmur, rubs, systolic murmur Vascular exam: PRESENT: normal capillary refill GI/Abdominal exam: PRESENT: normal bowel sounds, soft. ABSENT: distended, guarding, mass, organolmegaly, rebound, tenderness Rectal exam: PRESENT: deferred Extremities exam: PRESENT: full ROM. ABSENT: calf tenderness, clubbing, pedal edema Neurological exam: PRESENT: alert, awake, oriented to person, oriented to place, oriented to time, oriented to situation, CN II-XII grossly intact. ABSENT: motor sensory deficit Psychiatric exam: PRESENT: appropriate affect, normal mood. ABSENT: homicidal ideation, suicidal ideation Skin exam: PRESENT: dry, intact, warm. ABSENT: cyanosis, rash Results Laboratory Results: WBC 11.8 10^3/uL (4.0-10.5) H 02/02/19 05:12 RBC 3.03 10^6/uL (3.72-5.28) L 02/02/19 05:12 Hgb 9.1 g/dL (12.0-15.5) L 02/02/19 05:12 Hct 27.0 % (36.0-47.0) L 02/02/19 05:12 MCV 89 fl (80-97) 02/02/19 05:12 MCH 30.1 pg (27.0-33.4) 02/02/19 05:12 MCHC 33.8 g/dL (32.0-36.0) 02/02/19 05:12 RDW 14.0 % (11.5-14.0) 02/02/19 05:12 Plt Count 434 10^3/uL (150-450) 02/02/19 05:12 Lymph % (Auto) 9.6 % (13-45) L 01/30/19 02:45 Callahan % (Auto) 6.8 % (3-13) 01/30/19 02:45 Eos % (Auto) 1.3 % (0-6) 01/30/19 02:45 Baso % (Auto) 0.4 % (0-2) 01/30/19 02:45 Absolute Neuts (auto) 11.5 10^3/uL (1.7-8.2) H 01/30/19 02:45 Absolute Lymphs (auto) 1.4 10^3/uL (0.5-4.7) 01/30/19 02:45 Absolute Monos (auto) 1.0 10^3/uL (0.1-1.4) 01/30/19 02:45 Absolute Eos (auto) 0.2 10^3/uL (0.0-0.6) 01/30/19 02:45 Absolute Basos (auto) 0.1 10^3/uL (0.0-0.2) 01/30/19 02:45 Seg Neutrophils % 81.9 % (42-78) H 01/30/19 02:45 Sodium 139.2 mmol/L (137-145) 02/01/19 04:19 Potassium 3.9 mmol/L (3.6-5.0) 02/01/19 04:19 Chloride 107 mmol/L (98-107) 02/01/19 04:19 Carbon Dioxide 24 mmol/L (22-30) 02/01/19 04:19 Anion Gap 8 (5-19) 02/01/19 04:19 BUN 7 mg/dL (7-20) 02/01/19 04:19 Creatinine 0.67 mg/dL (0.52-1.25) 02/01/19 04:19 Est GFR ( Amer) > 60 (>60) 02/01/19 04:19 Est GFR (Non-Af Amer) Cancelled 01/30/19 02:45 Est GFR (MDRD) Non-Af > 60 (>60) 02/01/19 04:19 Glucose 98 mg/dL (75-110) 02/01/19 04:19 POC Glucose 115 mg/dL (70-110) H 02/01/19 05:55 Hemoglobin A1c % 6.3 % (4.7-6.0) H 01/31/19 06:00 Calcium 8.0 mg/dL (8.4-10.2) L 02/01/19 04:19 Total Bilirubin 1.2 mg/dL (0.2-1.3) 02/01/19 04:19 Direct Bilirubin 0.6 mg/dL (0.0-0.4) H 02/01/19 04:19 Neonat Total Bilirubin Not Reportable 02/01/19 04:19 Neonat Direct Bilirubin Not Reportable 02/01/19 04:19 Neonat Indirect Bili Not Reportable 02/01/19 04:19 AST 27 U/L (14-36) 02/01/19 04:19 ALT 26 U/L (<35) 02/01/19 04:19 Alkaline Phosphatase 59 U/L (38-126) 02/01/19 04:19 Total Protein 5.6 g/dL (6.3-8.2) L 02/01/19 04:19 Albumin 2.8 g/dL (3.5-5.0) L 02/01/19 04:19 Lipase 204.6 U/L (23-300) 01/31/19 06:00 EGFR Cancelled 01/30/19 02:45 Serum HCG, Qual NEGATIVE (NEGATIVE) 01/30/19 02:45 Urine Color YELLOW 01/31/19 09:02 Urine Appearance CLEAR 01/31/19 09:02 Urine pH 6.0 (5.0-9.0) 01/31/19 09:02 Ur Specific [place] 1.014 01/31/19 09:02 Urine Protein NEGATIVE mg/dL (NEGATIVE) 01/31/19 09:02 Urine Glucose (UA) NEGATIVE mg/dL (NEGATIVE) 01/31/19 09:02 Urine Ketones 80 mg/dL (NEGATIVE) H 01/31/19 09:02 Urine Blood NEGATIVE (NEGATIVE) 01/31/19 09:02 Urine Nitrite NEGATIVE (NEGATIVE) 01/30/19 03:05 Urine Nitrite (Reflex) NEGATIVE (NEGATIVE) 01/31/19 09:02 Urine Bilirubin NEGATIVE (NEGATIVE) 01/31/19 09:02 Urine Urobilinogen 2.0 mg/dL (<2.0) H 01/31/19 09:02 Ur Leukocyte Esterase NEGATIVE (NEGATIVE) 01/30/19 03:05 Leukocyte Esterase Rfl NEGATIVE (NEGATIVE) 01/31/19 09:02 Urine WBC (Auto) 3 /HPF 01/30/19 03:05 Urine RBC (Auto) 1 /HPF 01/31/19 09:02 Urine Bacteria (Auto) TRACE /HPF 01/31/19 09:02 Urine WBC (Reflex) 1 /HPF 01/31/19 09:02 Squamous Epi Cells Auto 3 /HPF 01/30/19 03:05 Urine Mucus (Auto) RARE /LPF 01/31/19 09:02 Urine Ascorbic Acid NEGATIVE (NEGATIVE) 01/31/19 09:02 Serum Alcohol < 10 mg/dL (NONE DETECTED) 01/30/19 04:27 Hepatitis A IgM Ab Negative (Negative) 01/30/19 04:27 Hep Bs Antigen Negative (Negative) 01/30/19 04:27 Hep B Core IgM Ab Negative (Negative) 01/30/19 04:27 Hepatitis C Antibody <0.1 s/co ratio (0.0-0.9) 01/30/19 04:27 Impressions: Abdomen/Pelvis CT 01/30/19 00:00 IMPRESSION: There is slight worsening of acute pancreatitis. Fatty infiltration of the liver. Chest X-Ray 01/30/19 02:12 IMPRESSION: Left basilar airspace opacity, likely representing atelectasis or possibly pneumonia. copyright 2011 [id number]- All Rights Reserved Plan Plan of Treatment: The patient is discharged home in stable condition. She is advised to follow-up with her primary care provider within 1 week. She is instructed to eat a bland diet and to avoid tobacco and alcohol intake. She is instructed to return to the emergency department as needed for concerning symptoms. Stroke Is this a Stroke Patient?: No Acute Heart Failure - Is this a Heart Failure Patient?: No
== END 2019-02-02 16:00 | disposition home or self-care (01) | DRG 440 ==
LOC: ER 22:40 → EH 01-30 06:43 → 4N 01-30 08:03
PROVIDERS: ADMIT Emergency Medicine; ATTEND Emergency Medicine
DX: K85.90 Acute pancreatitis without necrosis or infection, unspecified (principal); D72.829 Elevated white blood cell count, unspecified; E66.9 Obesity, unspecified; F17.200 Nicotine dependence, unspecified, uncomplicated
CPT/HCPCS: 36415; 71046; 74177; 80048; 80053; 80074; 80307; 81001; 82962; 83036; 83690; 84703; 85025; 85027; 87040; 94640; 96361; 96365; 96366; 96375; 96376; 99285; J0743; J1644; J1885; J1956; J2270; J2405; J2550; J3490; J7030; J7050; J7620

== ENCOUNTER → 2019-05-04 | Emergency (ER) | payer SELFPAY ==
[~2019-05-04] MED LIST: NORMAL SALINE 1000 ML 1,000 ML IV PRN; ONDANSETRON 4 MG TAB.RAPDIS PO ONE
[2019-05-04 11:47] VITALS: BP 151/100
--- NOTE | 2019-05-04 12:13 | ER Document Report ---
ED Medical Screen (RME) - General Chief Complaint: Abdominal Pain Stated Complaint: ABDOMINAL PAIN Time Seen by Provider: 05/04/19 12:09 Notes: 33-year-old female with history of pancreatitis presents with left upper quadrant pain that radiates across to right upper quadrant that started this morning. Patient states it is constant, nothing makes it worse, nothing makes it better. Associated nausea/vomiting. Patient states it feels similar to her pancreatitis in the past. Patient states she took 1 hydrocodone with little relief. Abdomen soft tenderness to upper abdomen. No CVA tenderness. I have greeted and performed a rapid initial assessment of this patient. A comprehensive ED assessment and evaluation of the patient, analysis of test results and completion of the medical decision making process with be conducted by additional ED providers. TRAVEL OUTSIDE OF THE [place] IN LAST 30 DAYS: No - Related Data Allergies/Adverse Reactions: No Known Allergies Allergy (Unverified 01/25/19 19:12) Past Medical History - Past Medical History Cardiac Medical History: Denies: Hx Coronary Artery Disease, Hx Hypertension Pulmonary Medical History: Denies: Hx Asthma, Hx COPD Neurological Medical History: Denies: Hx Migraine, Hx Seizures Endocrine Medical History: Denies: Hx Diabetes Mellitus Type 1, Hx Diabetes Mellitus Type 2, Hx Hyperthyroidism, Hx Hypothyroidism GI Medical History: Reports: Hx Pancreatitis. Denies: Hx Cirrhosis, Hx Hepatitis Musculoskeltal Medical History: Denies Hx Arthritis, Denies Hx Gout Skin Medical History: Denies Hx Eczema, Denies Hx Psoriasis Infectious Medical History: Denies: Hx Hepatitis Physical Exam - Vital signs Vitals: Temp Pulse Resp BP Pulse Ox 97.8 F 87 16 151/100 H 93 05/04/19 11:46 05/04/19 11:46 05/04/19 11:46 05/04/19 11:46 05/04/19 11:46 Course - Vital Signs Vital signs: Temp Pulse Resp BP Pulse Ox 97.8 F 87 16 151/100 H 93 05/04/19 11:46 05/04/19 11:46 05/04/19 11:46 05/04/19 11:46 05/04/19 11:46
[2019-05-04 12:53] LABS: ABSOLUTE BASOPHILS # (AUTO) 0.1 10^3/uL (0.0-0.2); ABSOLUTE EOSINOPHILS # (AUTO) 0.2 10^3/uL (0.0-0.6); ABSOLUTE LYMPHOCYTES (AUTO) 2.4 10^3/uL (0.5-4.7); ABSOLUTE MONOCYTES (AUTO) 0.6 10^3/uL (0.1-1.4); ABSOLUTE NEUT (AUTO) 6.6 10^3/uL (1.7-8.2); BASOPHILS % (AUTO) 0.6 % (0-2); EOSINOPHILS % (AUTO) 1.5 % (0-6); HEMATOCRIT 41.5 % (36.0-47.0); HEMOGLOBIN 14.3 g/dL (12.0-15.5); LYMPHOCYTES % (AUTO) 24.6 % (13-45); MEAN CORPUSCULAR HEMOGLOBIN 30.4 pg (27.0-33.4); MEAN CORPUSCULAR HGB CONC 34.5 g/dL (32.0-36.0); MEAN CORPUSCULAR VOLUME 88 fl (80-97); MONOCYTES % (AUTO) 6.2 % (3-13); PLATELET COUNT 405 10^3/uL (150-450); RED BLOOD COUNT 4.71 10^6/uL (3.72-5.28); RED CELL DISTRIBUTION WIDTH 13.9 % (11.5-14.0); SEGMENTED NEUTROPHILS % (AUTO) 67.1 % (42-78); TOTAL CELLS COUNTED % (AUTO) 100 %; WHITE BLOOD COUNT 9.8 10^3/uL (4.0-10.5)
[2019-05-04 13:08] LABS: APPEARANCE,URINE SLIGHTLY-CLOUDY; BILIRUBIN,URINE NEGATIVE (NEGATIVE); COLOR,URINE YELLOW; GLUCOSE, URINE NEGATIVE (NEGATIVE); KETONES,URINE NEGATIVE (NEGATIVE); PROTEIN,URINE 30 mg/dL (NEGATIVE); URINE SPECIFIC GRAVITY 1.023; UROBILINOGEN,URINE NEGATIVE mg/dL (<2.0)
[2019-05-04 13:13] LABS: ALBUMIN 4.9 g/dL (3.5-5.0); ALKALINE PHOSPHATASE 50 U/L (38-126); ANION GAP 11 (5-19); ASPARTATE AMINO TRANSFERASE 23 U/L (14-36); BILIRUBIN,TOTAL 0.5 mg/dL (0.2-1.3); BLOOD UREA NITROGEN 16 mg/dL (7-20); CALCIUM 10.2 mg/dL (8.4-10.2); CARBON DIOXIDE 27 mmol/L (22-30); CHLORIDE 101 mmol/L (98-107); GLUCOSE 93 mg/dL (75-110); TOTAL PROTEIN 8.4 g/dL (6.3-8.2)
== END ==
LOC: ER 11:40
DX: R10.12 Left upper quadrant pain (principal)
CPT/HCPCS: 36415; 83690; 84703; 85025; 80053; 81001; S0119; 99281

== ENCOUNTER 2019-08-29 18:44 | Emergency (ER) | payer OTHER ==
[2019-08-29] MEDS ORDERED: DIPH/PERTUSS(ACELL)/TETANUS VAC/PF 0.5 ML SYR (>=10YO) IM ONE (19:00)
--- NOTE | 2019-08-29 19:03 | ER Document Report ---
ED Medical Screen (RME) - General Chief Complaint: Laceration Stated Complaint: LACERATION/LEFT 2ND AND 3RD DIGIT Time Seen by Provider: 08/29/19 18:57 Mode of Arrival: Ambulatory Information source: Patient Notes: HPI; 33-year-old female presents to the emergency room with lacerations to her left index and middle fingers. States she cut them with a knife while chopping vegetables. Unknown last tetanus shot. Patient is right-handed. PE: Alert and oriented x3. Mild distress noted. Bleeding is controlled. There is a laceration through the left index fingernail, there is a small flap laceration noted to the left middle finger. Positive left radial pulse. I have greeted and performed a rapid initial assessment of this patient. A comprehensive ED assessment and evaluation of the patient, analysis of test results and completion of the medical decision making process will be conducted by additional ED providers. I have specifically instructed the patient or family members with the patient to immediately return to any nursing staff should anything change in the patient's condition or with their chief complaint. TRAVEL OUTSIDE OF THE [place] IN LAST 30 DAYS: No - Related Data Allergies/Adverse Reactions: No Known Allergies Allergy (Unverified 08/29/19 18:48) Past Medical History - Social History Chew tobacco use (# tins/day): No Frequency of alcohol use: Occasional Drug Abuse: None - Past Medical History Cardiac Medical History: Denies: Hx Coronary Artery Disease, Hx Hypertension Pulmonary Medical History: Denies: Hx Asthma, Hx COPD Neurological Medical History: Denies: Hx Migraine, Hx Seizures Endocrine Medical History: Denies: Hx Diabetes Mellitus Type 1, Hx Diabetes Mellitus Type 2, Hx Hyperthyroidism, Hx Hypothyroidism GI Medical History: Reports: Hx Pancreatitis. Denies: Hx Cirrhosis, Hx Hepatitis Musculoskeltal Medical History: Denies Hx Arthritis, Denies Hx Gout Skin Medical History: Denies Hx Eczema, Denies Hx Psoriasis Infectious Medical History: Denies: Hx Hepatitis Physical Exam - Vital signs Vitals: Temp 98.1 F 08/29/19 18:48 Course - Vital Signs Vital signs: Temp Pulse Resp BP Pulse Ox 98.1 F 08/29/19 18:48
[2019-08-29] MEDS ORDERED: CEPHALEXIN 500 MG CAPSULE PO ONE (20:29)
--- NOTE | 2019-08-29 20:32 | ER Document Report ---
HPI - HPI Time Seen by Provider: 08/29/19 18:57 Pain Level: 1 Context: Patient is a 33 year old female that comes to the emergency department for chief complaint of lacerations to the left index and middle fingers. This happened just prior to arrival, she states she was cutting chicken with a knife when she accidentally cut her fingers. She denies any other injuries. She is not up-to-date on her tetanus vaccine. She denies or any diagnosed medical history. - REPRODUCTIVE Reproductive: DENIES: : Past Medical History - General Information source: Patient - Social History Smoking Status: Current Every Day Smoker Chew tobacco use (# tins/day): No Frequency of alcohol use: Occasional Drug Abuse: None Lives with: Family Family History: Reviewed & Not Pertinent. denies: CAD, DM, Hyperlipidemia, Hypertension, Malignancy Patient has homicidal ideation: No - Past Medical History Cardiac Medical History: Denies: Hx Coronary Artery Disease, Hx Hypertension Pulmonary Medical History: Denies: Hx Asthma, Hx COPD Neurological Medical History: Denies: Hx Migraine, Hx Seizures Endocrine Medical History: Denies: Hx Diabetes Mellitus Type 1, Hx Diabetes Mellitus Type 2, Hx Hyperthyroidism, Hx Hypothyroidism GI Medical History: Reports: Hx Pancreatitis. Denies: Hx Cirrhosis, Hx Hepatitis Musculoskeletal Medical History: Denies Hx Arthritis, Denies Hx Gout Skin Medical History: Denies Hx Eczema, Denies Hx Psoriasis Infectious Medical History: Denies: Hx Hepatitis Surgical Hx: Negative - Immunizations Immunizations up to date: No Hx Diphtheria, Pertussis, Tetanus Vaccination: Yes Vertical Provider Document - CONSTITUTIONAL General Appearance: WD/WN, No Apparent Distress - INFECTION CONTROL TRAVEL OUTSIDE OF THE [place] IN LAST 30 DAYS: No - HEENT HEENT: Atraumatic, Normocephalic - NECK Neck: Normal Inspection - RESPIRATORY Respiratory: Breath Sounds Normal, No Respiratory Distress - CARDIOVASCULAR Cardiovascular: Regular Rate, Regular Rhythm - GI/ABDOMEN Gastrointestinal: Abdomen Soft, Abdomen Non-Tender - BACK Back: Normal Inspection - MUSCULOSKELETAL/EXTREMETIES Musculoskeletal/Extremeties: SHIMON LUIS, Tender - There is a very superficial 0.5 cm laceration over the dorsal aspect of the left middle finger just proximal to the DIP. There is also a laceration into the fingernail of the right index finger, this comes close to but does not include the cuticle, when I press on the nail I can slightly elevate this and slightly glimpse the nail bed. There is no injury through the nailbed. This is also small at approximately 0.5 cm. Normal capillary refill and sensation of all fingers, normal range of motion, normal strength against resistance in flexion and extension. No other signs of injury or concerning findings. - NEURO Level of Consciousness: Awake, Alert, Appropriate Motor/Sensory: No Motor Deficit, No Sensory Deficit - DERM Integumentary: Warm, Dry, No Rash Course - Re-evaluation Re-evalutation: Patient with 2 very superficial lacerations. I discussed options, patient is requesting Dermabond, based on how superficial these are I feel this would work the best. Patient was placed on antibiotic after discussion (dirty wound on the hand, closed), the area was cleaned thoroughly first, I did discuss signs of infection for potential developing hand infection, discussed return precautions. Patient states understanding and agreement. - Vital Signs Vital signs: Temp Pulse Resp BP Pulse Ox 98.1 F 08/29/19 18:48 Procedures - Laceration/Wound Repair left middle finger Wound length (cm): 0.5 Wound's Depth, Shape: Superficial, Linear Laceration pre-procedure: Sterile PPE donned, Sterile drapes applied, Shur-Clens applied Wound explored: Clean, No foreign body removed Wound Repaired With: Dermabond Layer Closure?: No Post-procedure NV exam normal: Yes Complications: No left index finger Wound length (cm): 0.5 Wound's Depth, Shape: Superficial, Irregular Laceration pre-procedure: Sterile PPE donned, Sterile drapes applied, Shur-Clens applied Wound explored: Clean, No foreign body removed Wound Repaired With: Dermabond Layer Closure?: No Post-procedure NV exam normal: Yes Complications: No Discharge - Discharge Clinical Impression: Laceration of left index finger Qualifiers: Encounter type: initial encounter Damage to nail status: without damage Foreign body presence: without foreign body Qualified Code(s): S61.211A - Laceration without foreign body of left index finger without damage to nail, initial encounter Laceration of left middle finger Qualifiers: Encounter type: initial encounter Damage to nail status: without damage Foreign body presence: without foreign body Qualified Code(s): S61.213A - Laceration without foreign body of left middle finger without damage to nail, initial encounter Condition: Stable Disposition: HOME, SELF-CARE Additional Instructions: The lacerations have been repaired with Dermabond. This will protect the area, this should fall off in about 5-7 days on its own. You can clean the area but avoid soaking or scrubbing the area. If the dermabond has not come off on its own after a week you can remove this by applying a topical antibiotic. Take the antibiotic as prescribed. Take Tylenol and ibuprofen as needed for pain. Follow- up with primary care. Return for any concerning symptoms including signs of infection such as pain, developing redness, fever, or any other concerning or worsening symptoms. Prescriptions: Cephalexin Monohydrate [Keflex 500 mg Capsule] 500 mg PO TID 5 Days #15 capsule
[2019-08-29 21:12] VITALS: BP 127/84
== END 2019-08-29 21:10 | disposition home or self-care (01) ==
LOC: ER 18:44
DX: S61.213A Laceration without foreign body of left middle finger without damage to nail, initial encounter (principal); S61.211A Laceration without foreign body of left index finger without damage to nail, initial encounter; W26.0XXA Contact with knife, initial encounter; Y93.G9 Activity, other involving cooking and grilling; F17.200 Nicotine dependence, unspecified, uncomplicated; Z23 Encounter for immunization
CPT/HCPCS: 90471; 90715; 99282

== ENCOUNTER 2019-09-05 16:04 | Emergency (ER) | payer OTHER ==
[2019-09-05] MEDS ORDERED: ONDANSETRON HCL INJ/PF 4 MG/2 ML SDV IV ONE ×2 (17:10→20:19)
[2019-09-05] MEDS ORDERED: MORPHINE SULFATE 10 MG/ML INJ IV ONE ×2 (17:10→20:03)
--- NOTE | 2019-09-05 17:17 | ER Document Report ---
ED Medical Screen (RME) - General Chief Complaint: Abdominal Pain Stated Complaint: ABDOMINAL PAIN Time Seen by Provider: 09/05/19 17:07 Notes: HPI: 33-year-old female presenting to the emergency department for evaluation of abdominal pain with nausea and vomiting that began last night. Patient has a history of pancreatitis no other abdominal surgery states this feels similar. Pain is in the epigastric region also in the right lower quadrant. PHYSICAL EXAMINATION: Patient is moderately tender through the epigastric periumbilical and right lower quadrant region I have greeted and performed a rapid initial assessment of this patient. A comprehensive ED assessment and evaluation of the patient, analysis of test results and completion of medical decision making process will be conducted by an additional ED providers. TRAVEL OUTSIDE OF THE [place] IN LAST 30 DAYS: No - Related Data Allergies/Adverse Reactions: No Known Allergies Allergy (Unverified 08/29/19 18:48) Past Medical History - Past Medical History Cardiac Medical History: Denies: Hx Coronary Artery Disease, Hx Hypertension Pulmonary Medical History: Denies: Hx Asthma, Hx COPD Neurological Medical History: Denies: Hx Migraine, Hx Seizures Endocrine Medical History: Denies: Hx Diabetes Mellitus Type 1, Hx Diabetes Mellitus Type 2, Hx Hyperthyroidism, Hx Hypothyroidism GI Medical History: Reports: Hx Pancreatitis. Denies: Hx Cirrhosis, Hx Hepatitis Musculoskeltal Medical History: Denies Hx Arthritis, Denies Hx Gout Skin Medical History: Denies Hx Eczema, Denies Hx Psoriasis Infectious Medical History: Denies: Hx Hepatitis - Immunizations Immunizations up to date: No Hx Diphtheria, Pertussis, Tetanus Vaccination: Yes Physical Exam - Vital signs Vitals: Temp Pulse Resp BP Pulse Ox 98.4 F 85 16 112/71 96 09/05/19 16:09/05/19 16:09/05/19 16:09/05/19 16:09/05/19 16:09 Course - Vital Signs Vital signs: Temp Pulse Resp BP Pulse Ox 98.4 F 85 16 112/71 96 09/05/19 16:09/05/19 16:09/05/19 16:09/05/19 16:09/05/19 16:09
[2019-09-05 18:26] LABS: APPEARANCE,URINE SLIGHTLY-CLOUDY; BILIRUBIN,URINE NEGATIVE (NEGATIVE); COLOR,URINE YELLOW; GLUCOSE, URINE NEGATIVE (NEGATIVE); KETONES,URINE TRACE mg/dL (NEGATIVE); LEUKOCYTE ESTERASE,URINE NEGATIVE (NEGATIVE); NITRITE,URINE NEGATIVE (NEGATIVE); PROTEIN,URINE 30 mg/dL (NEGATIVE); URINE SPECIFIC GRAVITY 1.025; UROBILINOGEN,URINE NEGATIVE mg/dL (<2.0)
[2019-09-05 18:27] LABS: ABSOLUTE EOSINOPHILS # (AUTO) 0.1 10^3/uL (0.0-0.6); ABSOLUTE MONOCYTES (AUTO) 0.4 10^3/uL (0.1-1.4); ABSOLUTE NEUT (AUTO) 11.2 10^3/uL (1.7-8.2); BASOPHILS % (AUTO) 0.3 % (0-2); EOSINOPHILS % (AUTO) 0.6 % (0-6); LYMPHOCYTES % (AUTO) 14.4 % (13-45); MEAN CORPUSCULAR VOLUME 89 fl (80-97); MONOCYTES % (AUTO) 2.9 % (3-13); PLATELET COUNT 396 10^3/uL (150-450); RED BLOOD COUNT 4.83 10^6/uL (3.72-5.28); RED CELL DISTRIBUTION WIDTH 13.2 % (11.5-14.0); SEGMENTED NEUTROPHILS % (AUTO) 81.8 % (42-78); TOTAL CELLS COUNTED % (AUTO) 100 %; WHITE BLOOD COUNT 13.7 10^3/uL (4.0-10.5)
[2019-09-05 18:45] LABS: MEAN CORPUSCULAR HEMOGLOBIN 29.8 pg (27.0-33.4); MEAN CORPUSCULAR HGB CONC 33.5 g/dL (32.0-36.0)
[2019-09-05 18:46] LABS: HEMOGLOBIN 14.4 g/dL (12.0-15.5)
[2019-09-05] MEDS ORDERED: ONDANSETRON HCL INJ/PF 4 MG/2 ML SDV ONE (20:19)
[2019-09-05] MEDS ORDERED: NORMAL SALINE 1000 ML 1,000 ML IV ONE ×2 (20:38→21:15)
[2019-09-05] MEDS ORDERED: LIDOCAINE 2% VISCOUS SOLN 15 ML UDCUP PO ONE (20:38)
[2019-09-05] MEDS ORDERED: MAG HYDROX/AL HYDROX/SIMETH SUSP 30 ML UDCUP PO ONE (20:38)
--- NOTE | 2019-09-05 20:40 | ER Document Report ---
ED GI/ - General Information source: Patient TRAVEL OUTSIDE OF THE [place] IN LAST 30 DAYS: No - HPI Patient complains to provider of: Abdominal pain, Vomiting Onset: Yesterday Timing/Duration: Worse Quality of pain: Sharp Pain Level: 5 Location: Epigastric Vaginal bleeding (Compared to normal period): None Associated symptoms: Nausea, Vomiting. denies: Chest pain, Fever, Urinary hesitancy, Urinary frequency, Urinary retention, Urinary urgency Exacerbated by: Denies Relieved by: Denies Similar symptoms previously: Yes Recently seen / treated by doctor: No <CLAYTON PRAJAPATI - Last Filed: 09/06/19 01:25> <JEMAL YANEZ - Last Filed: 09/06/19 02:08> - General Chief Complaint: Abdominal Pain Stated Complaint: ABDOMINAL PAIN Time Seen by Provider: 09/05/19 17:07 Notes: Patient presents complaining of abdominal pain with nausea and vomiting that started yesterday. Patient states she is vomited 5 times today. Patient reports pain to the upper abdomen. Patient denies any fever or urinary symptoms. Patient does have a previous history of pancreatitis. Patient does report drinking alcohol 3 days ago. (CLAYTON PRAJAPATI) - Related Data Allergies/Adverse Reactions: No Known Allergies Allergy (Unverified 08/29/19 18:48) Past Medical History - General Information source: Patient - Social History Smoking Status: Current Every Day Smoker Frequency of alcohol use: Occasional Drug Abuse: None Occupation: None Family History: Reviewed & Not Pertinent. denies: CAD, DM, Hyperlipidemia, Hypertension, Malignancy Patient has homicidal ideation: No - Past Medical History Cardiac Medical History: Denies: Hx Coronary Artery Disease, Hx Hypertension Pulmonary Medical History: Denies: Hx Asthma, Hx COPD Neurological Medical History: Denies: Hx Migraine, Hx Seizures Endocrine Medical History: Denies: Hx Diabetes Mellitus Type 1, Hx Diabetes Mellitus Type 2, Hx Hyperthyroidism, Hx Hypothyroidism GI Medical History: Reports: Hx Pancreatitis. Denies: Hx Cirrhosis, Hx Hepatitis Musculoskeletal Medical History: Denies Hx Arthritis, Denies Hx Gout Skin Medical History: Denies Hx Eczema, Denies Hx Psoriasis Infectious Medical History: Denies: Hx Hepatitis Surgical Hx: Negative - Immunizations Immunizations up to date: No Hx Diphtheria, Pertussis, Tetanus Vaccination: Yes <CLAYTON PRAJAPATI - Last Filed: 09/06/19 01:25> Review of Systems - Review of Systems Constitutional: No symptoms reported. denies: Fever, Recent illness EENT: No symptoms reported Cardiovascular: No symptoms reported. denies: Chest pain Respiratory: No symptoms reported. denies: Cough, Short of breath Gastrointestinal: Abdominal pain, Nausea, Vomiting. denies: Diarrhea Genitourinary: No symptoms reported. denies: Dysuria Female Genitourinary: No symptoms reported Musculoskeletal: No symptoms reported. denies: Back pain Skin: No symptoms reported Hematologic/Lymphatic: No symptoms reported Neurological/Psychological: No symptoms reported <CLAYTON PRAJAPATI - Last Filed: 09/06/19 01:25> Physical Exam - General General appearance: Alert In distress: Mild - HEENT Head: Normocephalic, Atraumatic Eyes: Normal Conjunctiva: Normal Nasal: Normal Mouth/Lips: Normal Mucous membranes: Normal Neck: Normal, Supple. No: Lymphadenopathy - Respiratory Respiratory status: No respiratory distress Chest status: Nontender Breath sounds: Normal. No: Rales, Rhonchi, Stridor, Wheezing Chest palpation: Normal - Cardiovascular Rhythm: Regular Heart sounds: S1 appreciated, S2 appreciated - Abdominal Inspection: Obese Distension: No distension Bowel sounds: Normal Tenderness: Tender - RUQ, epig Organomegaly: No organomegaly - Back Back: Normal, Nontender. No: CVA tenderness - Extremities General upper extremity: Normal inspection, Normal strength General lower extremity: Normal inspection, Normal strength - Neurological Neuro grossly intact: Yes Cognition: Normal Arnel Coma Scale Eye Opening: Spontaneous Arnel Coma Scale Verbal: Oriented [place] Coma Scale Motor: Obeys Commands Arnel Coma Scale Total: 15 - Psychological Associated symptoms: Normal affect, Normal mood - Skin Skin Temperature: Warm Skin Moisture: Dry Skin Color: Pale <CLAYTON PRAJAPATI - Last Filed: 09/06/19 01:25> - Vital signs Vitals: Temp Pulse Resp BP Pulse Ox 98.4 F 85 16 112/71 96 09/05/19 16:09 09/05/19 16:09 09/05/19 16:09 09/05/19 16:09 09/05/19 16:09 Course - Laboratory Result Diagrams: 09/05/19 18:04 09/05/19 21:06 - Diagnostic Test Radiology reviewed: Reports reviewed <CLAYTON PRAJAPATI - Last Filed: 09/06/19 01:25> - Laboratory Result Diagrams: 09/05/19 18:04 09/05/19 21:06 <JEMAL YANEZ - Last Filed: 09/06/19 02:08> - Re-evaluation Re-evalutation: 09/05/19 20:00 Patient continues with abdominal tenderness and requesting additional medicine. Awaiting results of patient's chemistry panel at this time. 09/06/19 22:20 Patient continues complain of epigastric tenderness requesting additional medication. Nausea seems to be resolved at this time. Will add on ultrasound imaging. 09/06/19 00:[address] Ma regarding patient presentation and diagnostic evaluation, imaging study results reviewed as well as laboratory test results. Dr. Worrell advises admission at this time to treat pancreatitis. Patient does have mild leukocytosis although this could be attributed to her multiple episodes of emesis and pain. Patient with a lipase of over 3900 and does report recent alcohol use. Patient with only minimal elevation of the AST, no dee vation of ALT or alkaline phosphatase. Advises consultation with hospitalist 09/06/19 00:[address] Real who declines admission at this time requesting transfer due to need for MRCP. 09/06/19 00:42 Call placed to [facility] transfer center. 09/06/19 00:[address] Nolen who does agree to accept patient for transfer at this time. Transfer center states that patient is on a pre-regional list that may wait up to 24 hours for room although transfer center does state that typically transfers are moving quicker than this. 09/06/19 01:25 Report and handoff given to Jemal LANCASTER 09/06/19 01:25 (CLAYTON PRAJAPATI) 09/06/19 02:07 Patient pending transfer. Nurse advised the patient appears sleepy but still appears to be uncomfortable despite the multiple pain medications and other medicines given. There was recommendation if elevated lactic acid, to institute antibiotics. Discussed the minimal elevation with Dr. Ma who advised no need. We will give a low-dose of Haldol to help alleviate the patient suf fering. We will continue to monitor. If patient has not been transferred prior to MRI staff reporting in the morning we will order MRCP. 09/06/19 02:08 (JEMAL YANEZ) - Vital Signs Vital signs: Temp Pulse Resp BP Pulse Ox 98.6 F 95 21 H 144/88 H 93 09/06/19 00:56 09/06/19 00:56 09/06/19 00:56 09/06/19 00:56 09/06/19 00:56 - Laboratory Laboratory results interpreted by me: 09/05/19 09/05/19 09/05/19 17:38 18:04 21:06 WBC 13.7 H Ashley % (Auto) 2.9 L Absolute Neuts (auto) 11.2 H Seg Neutrophils % 81.8 H Sodium 132.8 L Potassium 5.5 H Carbon Dioxide 19 L Lactic Acid Total Bilirubin 1.8 H Direct Bilirubin 1.0 H AST 56 H Total Protein 8.9 H Lipase 3911.0 H Urine Protein 30 H Urine Ketones TRACE H Urine Blood SMALL H 09/06/19 00:59 WBC Ashley % (Auto) Absolute Neuts (auto) Seg Neutrophils % Sodium Potassium Carbon Dioxide Lactic Acid 2.2 H Total Bilirubin Direct Bilirubin AST Total Protein Lipase Urine Protein Urine Ketones Urine Blood Discharge <CLAYTON PRAJAPATI - Last Filed: 09/06/19 01:25> <JEMAL YANEZ - Last Filed: 09/06/19 02:08> - Discharge Clinical Impression: Biliary obstruction Acute pancreatitis Qualifiers: Pancreatitis type: alcohol induced Acute pancreatitis complication: unspecified Qualified Code(s): K85.20 - Alcohol induced acute pancreatitis without necrosis or infection Nausea and vomiting Qualifiers: Vomiting type: unspecified Vomiting Intractability: non-intractable Qualified Code(s): R11.2 - Nausea with vomiting, unspecified Leukocytosis Qualifiers: Leukocytosis type: unspecified Qualified Code(s): D72.829 - Elevated white blood cell count, unspecified Disposition: [facility]
--- NOTE | 2019-09-05 20:43 | RADIOLOGY REPORT (SQ) ---
CT ABDOMEN PELVIS WITH IV CONTRAST HISTORY: Abdominal pain. COMPARISON: 01/30/2019 TECHNIQUE: CT scan of the abdomen and pelvis was performed with IV contrast. This exam was performed according to our departmental dose-optimization program, which includes automated exposure control, adjustment of the mA and/or kV according to patient size and/or use of iterative reconstruction technique. FINDINGS: The lung bases are clear. No pleural or pericardial effusions. There is no hiatal hernia. There is mild mesenteric stranding surrounding the pancreatic head and uncinate process. There is no fluid collection or pseudocyst. There is diffuse hepatic steatosis. The gallbladder, spleen, adrenal glands, kidneys, and pelvic organs are unremarkable. No obstructing urinary stones are seen. The stomach and duodenum are unremarkable. No small bowel obstruction. The appendix is normal. No evidence of acute diverticulitis. No adenopathy, free fluid, or free air is identified. The aorta is normal in caliber. No acute bony findings are seen. No abnormal body wall hernia. IMPRESSION: Findings which may represent mild pancreatitis without pseudocyst. Please correlate with lab values.
[2019-09-05] MEDS ORDERED: DIPHENHYDRAMINE HCL 50 MG/ML VIAL IV ONE (21:34)
[2019-09-05] MEDS ORDERED: PROCHLORPERAZINE EDISYLATE INJ 10 MG/2 ML VIAL IV ONE (21:34)
[2019-09-05 21:47] LABS: ALBUMIN 4.7 g/dL (3.5-5.0); ALKALINE PHOSPHATASE 65 U/L (38-126); ANION GAP 14 (5-19); ASPARTATE AMINO TRANSFERASE 56 U/L (14-36); BILIRUBIN,TOTAL 1.8 mg/dL (0.2-1.3); BLOOD UREA NITROGEN 16 mg/dL (7-20); CALCIUM 9.3 mg/dL (8.4-10.2); CARBON DIOXIDE 19 mmol/L (22-30); CHLORIDE 100 mmol/L (98-107); GLUCOSE 108 mg/dL (75-110); POTASSIUM 5.5 mmol/L (3.6-5.0); TOTAL PROTEIN 8.9 g/dL (6.3-8.2)
[2019-09-05] MEDS ORDERED: HYDROMORPHONE HCL INJ/PF 2 MG/ML AMPULE IV ONE (22:32)
[2019-09-05 22:44] LABS: URINE AMPHETAMINES SCREEN NEGATIVE; URINE BENZODIAZEPINES SCREEN NEGATIVE; URINE COCAINE SCREEN NEGATIVE; URINE MARIJUANA (THC) SCREEN NEGATIVE; URINE METHADONE SCREEN NEGATIVE; URINE PHENCYCLIDINE SCREEN NEGATIVE
[2019-09-05 22:45] LABS: URINE BARBITURATES SCREEN NEGATIVE
--- NOTE | 2019-09-06 00:02 | RADIOLOGY REPORT (SQ) ---
EXAM DESCRIPTION: US ABDOMEN LIMITED COMPLETED DATE/TME: 09/05/2019 22:17 CLINICAL HISTORY: upper abd pain COMPARISON: CT performed same day and ultrasound from 01/26/2019 TECHNIQUE: Real-time sonographic images of the right upper abdomen were obtained using a curved multihertz transducer. FINDINGS: Pancreas: The visualized portions of the pancreas are unremarkable. Vascular: The visualized portions of the aorta and IVC are unremarkable. Liver: The liver has normal contour and increased echogenicity. Hepatopedal flow in the portal vein. Findings confirmed with color and spectral Doppler imaging. The common bile duct measures 1.0 cm. No definite intrahepatic biliary dilatation. Gallbladder: The gallbladder has a normal appearance. No gallstones identified. No wall thickening or pericholecystic fluid. Right Kidney: The right kidney measures 10.3 cm in length. No hydronephrosis, solid renal mass, or shadowing calculi. IMPRESSION: 1. No gallstones. 2. Mild dilation of the common bile duct measuring 1.0 cm. No intrahepatic biliary dilatation. MRCP could provide additional characterization. 3. Hepatic steatosis.
[2019-09-06] MEDS ORDERED: MORPHINE SULFATE 10 MG/ML INJ IV ONE (00:12)
[2019-09-06] MEDS ORDERED: HALOPERIDOL LACTATE INJ 5 MG/1 ML VIAL IV ONE (02:07)
[2019-09-06] MEDS ORDERED: PROMETHAZINE HCL INJ 25 MG/1 ML VIAL IV ONE (03:12)
[2019-09-06 04:26] VITALS: BP 148/102
== END 2019-09-06 04:42 | disposition short-term general hospital (02) ==
LOC: ER 16:04
DX: K83.1 Obstruction of bile duct (principal); K85.20 Alcohol induced acute pancreatitis without necrosis or infection; R10.13 Epigastric pain; R11.2 Nausea with vomiting, unspecified; R10.811 Right upper quadrant abdominal tenderness; R10.816 Epigastric abdominal tenderness; K76.0 Fatty (change of) liver, not elsewhere classified; F17.200 Nicotine dependence, unspecified, uncomplicated; R74.0 Nonspecific elevation of levels of transaminase and lactic acid dehydrogenase [LDH]; D72.829 Elevated white blood cell count, unspecified
CPT/HCPCS: 99285; 36415; 83605; 83690; 85025; 81025; 80053; 81001; 80307; 76705; 74177; J1200; J1630; J3490; J2270 ×2; J1170; J0780; J2405; J7030